=== PATIENT | female | born 1995 | race Caucasian/White ===

== ENCOUNTER 2019-11-02 15:06 | Emergency (ER) | payer MEDICAID, SELFPAY ==
[2019-11-02 15:32] VITALS: BP 100/60; PULSE 83; RESP 16; TEMP 37.1; O2SAT 99
--- NOTE | 2019-11-02 16:07 | ED.URI ---
HPI - URI/Sore Throat General Chief Complaint: Upper Respiratory Infection Stated Complaint: Cold/Flu Time Seen by Provider: 11/02/19 15:42 Source: patient and RN notes reviewed Mode of arrival: ambulatory Limitations: no limitations History of Present Illness HPI Narrative: Patient presents today with a 10-day history of body aches and cough. States she is feeling better. Denies any current fever, shortness of breath, nausea or vomiting. She presents with her 2 children with similar symptoms today. She has not been taking any medication for symptoms prior to arrival MD elicited complaint: cough Related Data Allergies Allergy/AdvReac Type Severity Reaction Status Date / Time shellfish derived Allergy Unknown Anaphylactic Verified 09/20/19 08:30 Shock Review of Systems Review of Systems: Narrative: CONSTITUTIONAL: Denies fever, chills, or sweats.+ Body aches EYES: Denies visual changes, redness, or discharge. ENT: Denies rhinorrhea, congestion, sore throat, or otalgia. CARDIOVASCULAR: Denies chest pain, palpitations, or edema. RESPIRATORY: Denies dyspnea.+ Cough GASTROINTESTINAL: Denies abdominal pain, nausea, vomiting, or diarrhea. GENITOURINARY: Denies dysuria or hematuria. SKIN: Denies rash, itching, or wounds. MUSCULOSKELETAL: Denies back pain, joint pain, or myalgia. NEUROLOGIC: Denies headache, numbness, tingling, or weakness. PSYCH: Denies depression or anxiety. PMFSH Social History Social History Gender identity (if verbalized by the patient): Female Comments At time of signature, I have reviewed and agree with nursing past medical, surgical, social and family history unless otherwise noted. Please see nursing chart for further information. There is no relevant family history pertinent to the presenting complaint Exam Narrative: Exam Narrative: GENERAL: Well-appearing, well-nourished, and in no acute distress. HEAD: Normocephalic, atraumatic. EYES: EOMI. No redness or drainage. Conjunctivae normal. ENT: Mucous membranes pink and moist. Nares mildly congested. No rhinorrhea. TMs normal bilaterally. Throat normal. Uvula midline. NECK: Normal AROM. Supple. No lymphadenopathy. CHEST: No respiratory distress. Clear to auscultation. HEART: Regular rate and rhythm. No murmur appreciated. Normal peripheral pulses. EXTREMITIES: Normal range of motion. No edema. SKIN: Warm, dry, no rash. NEURO: No focal deficits. Alert and oriented x3. Gait steady. PSYCH: Normal affect. No signs of depression or anxiety. Course Vital Signs Vital signs: Vital Signs Temperature 98.7 F 11/02/19 15:32 Pulse Rate 83 11/02/19 15:32 Respiratory Rate 16 11/02/19 15:32 Blood Pressure 100/60 11/02/19 15:32 Pulse Oximetry 99 11/02/19 15:32 Temperature 98.7 F 11/02/19 15:32 Pulse Rate 83 11/02/19 15:32 Respiratory Rate 16 11/02/19 15:32 Blood Pressure 100/60 11/02/19 15:32 Pulse Oximetry 99 11/02/19 15:32 Reviewed MDM - URI/Sore Throat Differential Diagnosis Differential diagnosis: Likely upper respiratory infection, otitis media, viral infection and bronchitis Lab Data Attestation: I reviewed the patient's lab results. Lab results narrative: Rapid strep negative, influenza negative Critical Care Time Critical Care Time Critical Care Time: No Discharge Plan Discharge Clinical Impression: Upper respiratory infection Qualifiers: URI type: unspecified URI Qualified Code(s): J06.9 - Acute upper respiratory infection, unspecified Patient Disposition: Home, Self-Care Condition: Stable Instructions: Antibiotic Form, Upper Respiratory Infection (DC) Additional Instructions: Your symptoms are likely due to a viral illness, which is not treated with antibiotics. Virus symptoms can last for up to 10-14 days. Take Tylenol or ibuprofen for pain or fever. Rest and stay hydrated. Follow up with your PCP in 5-6 days if symptoms are not improving, or sooner if symptoms are wo
== END 2019-11-02 16:29 | disposition home or self-care (01) ==
PROVIDERS: Emergency Provider Nurse Practitioner; PCP Physician Assistant
DX: J06.9 Acute upper respiratory infection, unspecified (principal)
CPT/HCPCS: 87081; 87804; 87880; 99213; G0463

== ENCOUNTER 2020-02-23 15:54 | Emergency (ER) | payer OTHER, SELFPAY ==
--- NOTE | ~2020-02-23 | XR_ITS ---
EXAMINATION: XR foot LT min 3V DATE: 02/23/2020 16:16 INDICATION: Pain at the distal metatarsal of the left foot post injury 4 days prior TECHNIQUE: Dorsoplantar, two oblique and lateral views of the left foot were obtained. COMPARISON: None. FINDINGS: Alignment is normal. No fracture. Joint spaces are normal. Soft tissues are unremarkable. IMPRESSION: 1. Negative left foot radiographs. Reviewed, dictated and finalized at location A.
[2020-02-23 16:06] VITALS: BP 119/65; PULSE 69; RESP 16; TEMP 37.4; O2SAT 99
--- NOTE | 2020-02-23 16:06 | ED.LOWEXIN ---
HPI - Extremity Injury (Lower) General Chief Complaint: Extremity Injury, Lower Stated Complaint: left foot fracture Time Seen by Provider: 02/23/20 16:20 Source: patient and RN notes reviewed Mode of arrival: ambulatory Limitations: no limitations History of Present Illness HPI Narrative: 24-year-old female presents with concern for left foot injury. Reports she jumped into the shallow end of a pool Friday causing pain in the dorsal aspect of her left foot. Reports pain at rest and with weightbearing. Reports bruising. Reports she has been using an Gene wrap with some relief. MD complaint: foot injury Related Data Home Medications Medication Instructions Recorded Confirmed aripiprazole mg 02/23/20 clonazepam 02/23/20 estradiol mg 02/23/20 fluoxetine mg 02/23/20 medroxyprogesterone mg IM 02/23/20 trazodone 02/23/20 Allergies Allergy/AdvReac Type Severity Reaction Status Date / Time shellfish derived Allergy Unknown Anaphylactic Verified 11/02/19 16:12 Shock Review of Systems Review of Systems: Narrative: CONSTITUTIONAL: Denies malaise, chills, sweats, or fever. SKIN: Reports left foot bruising MUSCULOSKELETAL: Reports left foot pain. Denies numbness, tingling, decreased sensation, weakness PSYCHIATRIC: Denies anxiety or depression. All systems reviewed & are unremarkable except as noted in HPI and below PMFSH Social History Social History Gender identity (if verbalized by the patient): Female Comments At time of signature, agree with nursing past medical, surgical, social and family history. There is no relevant family history pertinent to the presenting complaint Exam Narrative: Exam Narrative: GENERAL: Well-appearing, well-nourished, and in no acute distress. HEAD: Normocephalic, atraumatic. EYES: PERRLA, conjunctivae clear NECK: Supple. CHEST: Speaks in full sentences. No respiratory distress. HEART: Regular rate and rhythm. Normal and equal peripheral pulses. EXTREMITIES: Left foot, digits have normal strength and sensation, no edema, normal range of motion. 5/5 strength with digit and ankle flexion and extension. Normal sensation with sensitivity to light touch and pain. No open wounds, no skin tenting, no devitalized tissue or atrophy, no trophic changes, no ecchymosis, no obvious deformity, alignment normal, no point tenderness, nearby joints and structures intact. Distal pulses palpable and equal bilaterally, skin warm, dry, pink. Capillary refill less than 3 seconds. SKIN: Warm, dry, no rash. NEURO: Alert and oriented x3. PSYCH: Normal mood and affect Course Course Emergency Course: Patient is aware of diagnosis, understands and agrees to treatment plan. Anticipatory guidance given. Patient agrees to follow-up as directed and is aware of reasons to seek care at the emergency department. Portions of this record may have been created with voice recognition software Vital Signs Vital signs: Vital Signs Temperature 99.4 F 02/23/20 16:06 Pulse Rate 69 02/23/20 16:06 Respiratory Rate 16 02/23/20 16:06 Blood Pressure 119/65 02/23/20 16:06 Pulse Oximetry 99 02/23/20 16:06 Temperature 99.4 F 02/23/20 16:06 Pulse Rate 69 02/23/20 16:06 Respiratory Rate 16 02/23/20 16:06 Blood Pressure 119/65 02/23/20 16:06 Pulse Oximetry 99 02/23/20 16:06 Reviewed. MDM - Extremity Injury (Lower) MDM Narrative Medical decision making narrative: Patients injury and pain is consistent with musculoskeletal etiology. No signs of neurological or vascular compromise on exam. Compartments and tissues are soft without signs of compartment syndrome. Pain is felt appropriate for further evaluation on an outpatient basis. Imaging Data My impression: Images reviewed, interpreted by radiologist, agree, see report. Radiologist's impression: EXAMINATION: XR foot LT min 3V DATE: 02/23/2020 16:16 INDICATION: Pain at the distal metatarsal of the left foot post injury 4 days
== END 2020-02-23 16:38 | disposition home or self-care (01) ==
PROVIDERS: Emergency Provider Nurse Practitioner; PCP Physician Assistant
DX: S99.922A Unspecified injury of left foot, initial encounter (principal); W16.522A Jumping or diving into swimming pool striking bottom causing other injury, initial encounter
CPT/HCPCS: 73630; 99213; G0463

== ENCOUNTER 2021-03-25 12:56 | Emergency (ER) | payer OTHER, SELFPAY ==
--- NOTE | ~2021-03-25 | XR_ITS ---
EXAMINATION: XR hand RT min 3V INDICATION: Right hand pain TECHNIQUE: Three views of the right hand are obtained. COMPARISON: 09/06/2018 FINDINGS: There is no fracture, dislocation, or subluxation. An old healed fracture of the third meta carpal is noted. The bones, soft tissues, and joint spaces are otherwise normal. IMPRESSION: 1. No acute osseous abnormality. Reviewed, dictated and finalized at location A.
[2021-03-25 13:05] VITALS: BP 96/71; PULSE 92; RESP 16; TEMP 37; O2SAT 99
--- NOTE | 2021-03-25 13:10 | PC.NURSE ---
1309- Pt taken from triage to x-ray
--- NOTE | 2021-03-25 13:26 | ED.GENADULT ---
HPI - General Adult General Chief complaint: Extremity Injury, Upper Stated complaint: right hand pain Time Seen by Provider: 03/25/21 13:26 Source: patient and RN notes reviewed Mode of arrival: ambulatory Limitations: no limitations History of Present Illness HPI narrative: 25-year-old female presents with right hand pain for the past 2 days. Bertha reports tripping and falling on Friday03/23/2021 on which she grabbed a railing to break her fall, hit RT upper arm and hand on concrete albertina causing injury. Naproxen with little relief. Radiation of pain throughout RT upper extremity with certain movements. No loss of mobility. Exacerbating factors consist of movement. The relieving factor is immobility. Dominant hand is the RIGHT HAND. No suspected abuse. Denies hitting head, loss of consciousness, syncopal episodes, dizziness, or seizure activity. LMP hysterectomy. Remains active. The patient reports she has not been diagnosed with COVID-19. The patient reports she received 2 Pfizer COVID-19 vaccines. The patient reports she is not waiting for the results of a COVID-19 lab test. The patient reports she does not have weakness, fatigue, or myalgia. The patient reports she does not have a new or worsening cough or shortness of breath. The patient reports she does not have any rhinorrhea, congestion, loss of taste, sore throat, and diarrhea. Denies recent traveling. Denies concerns for COVID-19 or exposures. At this time, the patient is not suspected of having COVID-19. Some parts of this dictation were generated by voice recognition software and may contain typographical and/or grammatical inaccuracies. Related Data Home Medications Medication Instructions Recorded Confirmed aripiprazole 1 mg PO DAILY 03/25/21 03/25/21 clonazepam 1 mg PO BID 03/25/21 03/25/21 fluoxetine 1 mg PO DAILY 03/25/21 03/25/21 mirtazapine 1 mg PO HS 03/25/21 03/25/21 prazosin 1 mg PO HS 03/25/21 03/25/21 rizatriptan 1 mg PO DAILY 03/25/21 03/25/21 Allergies Allergy/AdvReac Type Severity Reaction Status Date / Time shellfish derived Allergy Unknown Anaphylactic Verified 03/25/21 13:22 Shock Review of Systems Review of Systems: Narrative: CONSTITUTIONAL: Denies fever, chills, sweats. EYES: Denies visual changes, redness, discharge. ENT: Denies rhinorrhea, congestion, sore throat, otalgia. CARDIOVASCULAR: Denies chest pain, palpitations, edema. RESPIRATORY: Denies dyspnea, wheezing, cough. GASTROINTESTINAL: Denies abdominal pain, nausea, vomiting, diarrhea. SKIN: Denies rash or itching. MUSCULOSKELETAL: Denies acute back pain or myalgia. Complaints of Right hand pain. NEUROLOGIC: Denies numbness or focal weakness. PSYCHIATRIC: Denies anxiety or depression. All other systems reviewed & are unremarkable except as noted in HPI and below. FORMERLY [facility] Past Medical History Medical History (Updated 04/02/21 @ 10:25 by ERNESTO Camacho) Anxiety Asthma Bipolar disorder delivery delivered Endometriosis Hx of migraines MRSA (methicillin resistant staph aureus) culture positive Post traumatic stress disorder (PTSD) Surgical History Surgical History (Updated 04/02/21 @ 10:19 by ERNESTO Camacho) H/O section X3 History of hysterectomy Family History Family History (Updated 03/25/21 @ 13:42 by ERNESTO Camacho) Father Alive and well Mother Alive and well Social History Social History (Updated 03/25/21 @ 13:43 by ERNESTO Camacho) Smoking packs per day: 0.25 Smoking cigarettes per day: 5.0 Years smoked: 1 Smoking pack-years: 0.25 Smoking status: Current every day smoker Tobacco type: cigarettes Second hand tobacco smoke exposure: No Alcohol intake: current Substance use: current Substance use type: marijuana Living arrangements: with family Occupation/Education: occupation Gender identity (if verbalized by the patient): Female Sexual Orienta
[2021-03-25 14:00] VITALS: BP 110/79
== END 2021-03-25 13:58 | disposition home or self-care (01) ==
PROVIDERS: Emergency Provider Nurse Practitioner Family
DX: S63.91XA Sprain of unspecified part of right wrist and hand, initial encounter (principal); X58.XXXA Exposure to other specified factors, initial encounter; F41.9 Anxiety disorder, unspecified; J45.909 Unspecified asthma, uncomplicated; N80.9 Endometriosis, unspecified; Z86.14 Personal history of Methicillin resistant Staphylococcus aureus infection; F17.210 Nicotine dependence, cigarettes, uncomplicated
CPT/HCPCS: 73130; 99213; G0463

== ENCOUNTER 2021-06-27 10:20 | Emergency (ER) | payer OTHER, SELFPAY ==
[2021-06-27 10:32] VITALS: BP 114/80; PULSE 79; RESP 16; TEMP 36.8; O2SAT 100
== END 2021-06-27 10:50 | disposition left against medical advice (07) ==
LOC: EXPCOLL 10:23
PROVIDERS: Emergency Provider Nurse Practitioner Family
DX: Z53.21 Procedure and treatment not carried out due to patient leaving prior to being seen by health care provider (principal)
CPT/HCPCS: 99199

== ENCOUNTER 2023-01-14 10:33 | Emergency (ER) | payer OTHER, SELFPAY ==
[2023-01-14 10:44] VITALS: BP 103/70; PULSE 78; RESP 16; TEMP 36.6; O2SAT 100
--- NOTE | 2023-01-14 10:47 | ED.GENADULT ---
HPI - General Adult General Chief complaint: RADIOLOGY ORDERLY Stated complaint: vaginal exam Source: patient Mode of arrival: ambulatory Limitations: no limitations History of Present Illness HPI narrative: Patient presents for evaluation of vaginal discharge for last 2-3 days. She indicates discharge is white in appearance and has a foul odor. She is concerned she has BV or STI. She is not sure whether any sex partners are symptomatic. History of total hysterectomy. No fever, chills, nausea, vomiting, abdominal pain, low back pain or urinary symptoms. Related Data Home Medications Medication Instructions Recorded Confirmed aripiprazole 10 mg tablet 1 mg PO DAILY 03/25/21 03/25/21 clonazepam 2 mg tablet 1 mg PO BID 03/25/21 03/25/21 fluoxetine 40 mg capsule 1 mg PO DAILY 03/25/21 03/25/21 mirtazapine 15 mg tablet 1 mg PO HS 03/25/21 03/25/21 prazosin 1 mg capsule 1 mg PO HS 03/25/21 03/25/21 rizatriptan 10 mg disintegrating 1 mg PO DAILY 03/25/21 03/25/21 tablet gabapentin 300 mg capsule mg 01/14/23 Allergies Allergy/AdvReac Type Severity Reaction Status Date / Time shellfish derived Allergy Unknown Anaphylactic Verified 03/25/21 13:22 Shock Review of Systems Review of Systems: CONSTITUTIONAL: Denies fever, chills, or sweats. EYES: Denies visual changes, redness, or discharge. ENT: Denies rhinorrhea, congestion, sore throat, or otalgia. CARDIOVASCULAR: Denies chest pain, palpitations, or edema. RESPIRATORY: Denies cough or dyspnea. GASTROINTESTINAL: Denies abdominal pain, nausea, vomiting, or diarrhea. GENITOURINARY: Reports foul smelling vaginal discharge. Denies vaginal bleeding. Denies dysuria or hematuria. SKIN: Denies rash or itching. MUSCULOSKELETAL: Denies back pain, joint pain, or myalgia. NEUROLOGIC: Denies headache, numbness, dizziness, or weakness. PSYCHIATRIC: Denies anxiety or depression. [facility] Past Medical History Medical History Anxiety Asthma Bipolar disorder delivery delivered Endometriosis Hx of migraines MRSA (methicillin resistant staph aureus) culture positive Post traumatic stress disorder (PTSD) Surgical History Surgical History H/O section X3 History of hysterectomy Family History Family History Father Alive and well Mother Alive and well Social History Social History (Updated 03/25/21 @ 13:43 by David Victoria [facility]) Smoking packs per day: 0.25 Smoking cigarettes per day: 5.0 Years smoked: 1 Smoking pack-years: 0.25 Smoking status: Current every day smoker Tobacco type: cigarettes Second hand tobacco smoke exposure: No Alcohol intake: current Substance use: current Substance use type: marijuana Living arrangements: with family Occupation/Education: occupation Gender identity (if verbalized by the patient): Female Sexual Orientation (if Verbalized by the Patient): Straight or Heterosexual Exam Narrative: GENERAL: Well-appearing, well-nourished, and in no acute distress. HEAD: Normocephalic, atraumatic. EYES: PERRLA and EOMI. ENT: Nares clear, no rhinorrhea or epistaxis. Mucous membranes moist. Oropharynx without tonsillar hypertrophy exudate or other lesions. Bilateral TMs pearly denise nonbulging NECK: Supple. No adenopathy or masses. No carotid bruits or JVD CHEST: Clear to auscultation. No respiratory distress. No wheezes rales or rhonchi HEART: Regular rate and rhythm. No murmur heard. Normal peripheral pulses. ABDOMEN: Soft, nontender, nondistended, normal active bowel sounds. EXTREMITIES: Normal range of motion. No edema. GENITAL: No external genital lesions. Cervix is surgically absent. There is a moderate amount of white discharge in vaginal vault. SKIN: Warm, dry, no rash. NEURO: No focal deficits. Alert and oriente
[2023-01-14] MEDS: cefTRIAXone 500 MG VIAL IM (11:19)
--- NOTE | 2023-01-14 11:46 | PC.NURSE ---
Vaginal exam done and cultures obtained.
== END 2023-01-14 11:46 | disposition home or self-care (01) ==
PROVIDERS: Emergency Provider Nurse Practitioner
DX: N76.0 Acute vaginitis (principal); F17.210 Nicotine dependence, cigarettes, uncomplicated; F12.90 Cannabis use, unspecified, uncomplicated; J45.909 Unspecified asthma, uncomplicated; N80.9 Endometriosis, unspecified; Z86.14 Personal history of Methicillin resistant Staphylococcus aureus infection; F41.9 Anxiety disorder, unspecified; F31.9 Bipolar disorder, unspecified
CPT/HCPCS: 81003; 87070; 87491; 87591; 87661; 96372; 99214; G0463; J0696

== ENCOUNTER 2023-04-17 16:21 | Emergency (ER) | payer OTHER, SELFPAY ==
--- NOTE | 2023-04-17 16:27 | ED.FEMALEGU ---
HPI - Female Genitourinary General Chief complaint: Urogenital-Female Stated complaint: Vaginal Issue Time Seen by Provider: 04/17/23 16:29 Source: patient, RN notes reviewed and old records reviewed Mode of arrival: ambulatory Limitations: no limitations History of Present Illness HPI Narrative: 27-year-old female presents to the [facility] with concerns for vaginal issues. Has a history of bacterial vaginitis, states it smells and feels like her typical. Patient denies , has a hysterectomy. Denies chances of an STD. Denies any abdominal pain, chest pain. Denies fevers. No urinary symptoms. Patient reports I just can not stand the smell. ? Onset (ago): day(s) (2) Related Data Home Medications Medication Instructions Recorded Confirmed aripiprazole 10 mg tablet 1 mg PO DAILY 03/25/21 04/17/23 clonazepam 2 mg tablet 1 mg PO BID 03/25/21 04/17/23 fluoxetine 40 mg capsule 1 mg PO DAILY 03/25/21 04/17/23 albuterol sulfate 90 mcg/actuation inhalation 04/17/23 aerosol inhaler clonidine HCl 0.1 mg tablet mg 04/17/23 gabapentin 300 mg capsule 300 mg PO BID 04/17/23 04/17/23 Allergies Allergy/AdvReac Type Severity Reaction Status Date / Time shellfish derived Allergy Unknown Anaphylactic Verified 04/17/23 16:35 Shock Review of Systems Review of Systems: All systems reviewed & are unremarkable except as noted in HPI and below Constitutional: Constitutional: Reports no additional constitutional complaints Eyes: Eyes: Reports no additional eye complaints ENT: Reports system reviewed and no additional complaints, except as documented Cardiovascular: Cardiovascular: Reports no additional cardiovascular complaints, Denies chest pain and Denies dyspnea Respiratory: Respiratory: Reports no additional respiratory complaints, Denies chest congestion, Denies cough and Denies dyspnea Gastrointestinal: Gastrointestinal: Reports no additional gastrointestinal complaints, Denies abdominal pain, Denies nausea and Denies vomiting Genitourinary: Genitourinary: Reports as per HPI, Reports vaginal discharge and Reports vaginal odor Musculoskeletal: Musculoskeletal: Reports no additional musculoskeletal complaints Integumentary/Breasts: Skin/Breast: Reports system reviewed and no additional complaints, except as docu Neurologic: Reports system reviewed and no additional complaints, except as documented Psychiatric: Psychiatric: Reports no additional psychiatric complaints Allergic/Immunologic: Allergic/Immunologic: Reports no additional allergic/immunologic complaints PMFSH Past Medical History Medical History Anxiety Asthma Bipolar disorder delivery delivered Endometriosis Hx of migraines MRSA (methicillin resistant staph aureus) culture positive Post traumatic stress disorder (PTSD) Surgical History Surgical History H/O section X3 History of hysterectomy Family History Family History Father Alive and well Mother Alive and well Social History Social History Smoking packs per day: 0.25 Smoking cigarettes per day: 5.0 Years smoked: 1 Smoking pack-years: 0.25 Smoking status: Current every day smoker Tobacco type: cigarettes Second hand tobacco smoke exposure: No Alcohol intake: current Substance use: current Substance use type: marijuana Living arrangements: with family Occupation/Education: occupation Gender identity (if verbalized by the patient): Female Sexual Orientation (if Verbalized by the Patient): Straight or Heterosexual Comments At the time of my signature, I reviewed and agree with the nursing past medical, surgical, social, and family history. There is no relevant family history pertinent to the patient complaint. Ex
[2023-04-17 16:30] VITALS: BP 118/76; PULSE 100; RESP 18; TEMP 36.9; O2SAT 99
== END 2023-04-17 16:45 | disposition home or self-care (01) ==
PROVIDERS: Emergency Provider Nurse Practitioner; PCP Physician Assistant
DX: N76.0 Acute vaginitis (principal); F17.210 Nicotine dependence, cigarettes, uncomplicated; F12.90 Cannabis use, unspecified, uncomplicated; J45.909 Unspecified asthma, uncomplicated; N80.9 Endometriosis, unspecified; Z86.14 Personal history of Methicillin resistant Staphylococcus aureus infection; F41.9 Anxiety disorder, unspecified; F43.10 Post-traumatic stress disorder, unspecified
CPT/HCPCS: 99213; G0463

== ENCOUNTER 2023-09-09 14:13 | Emergency (ER) | payer OTHER, SELFPAY ==
[2023-09-09 14:23] VITALS: BP 108/74; PULSE 90; RESP 18; TEMP 36.9; O2SAT 98
--- NOTE | 2023-09-09 15:34 | ED.URI ---
HPI - URI/Sore Throat General Chief Complaint: Upper Respiratory Infection Stated Complaint: Sore Throat/Fever/Headache Time Seen by Provider: 09/09/23 15:32 Source: patient, RN notes reviewed and old records reviewed Mode of arrival: ambulatory Limitations: no limitations History of Present Illness HPI Narrative: 27-year-old female who who presents to [facility] with complaints of cough, headache, sinus pressure, runny nose, sore throat, body aches and fevers the past 3 days. Patient states she has been taking Mucinex and has been taking Advil flu [id number] medication for her symptoms. MD elicited complaint: cough and sore throat Onset (ago): day(s) (3) Consistency: constant Pain scale (0-10): 5 Able to tolerate fluids by mouth: Yes Treatments prior to arrival: other (Mucinex and Advil flu OTC) Related Data Home Medications Medication Instructions Recorded Confirmed clonidine HCl 0.1 mg tablet 0.1 mg PO DAILY 04/17/23 09/09/23 aripiprazole 15 mg tablet 15 mg PO DAILY 09/09/23 09/09/23 clonazepam 1 mg tablet 1 mg PO BID 09/09/23 09/09/23 fluoxetine 20 mg capsule 20 mg PO DAILY 09/09/23 09/09/23 trazodone 50 mg tablet 50 mg PO QHS 09/09/23 09/09/23 Allergies Allergy/AdvReac Type Severity Reaction Status Date / Time shellfish derived Allergy Unknown Anaphylactic Verified 09/09/23 14:41 Shock Review of Systems Review of Systems: CONSTITUTIONAL: Reports malaise, chills, sweats, or fever. EYES: Denies visual changes, redness, or discharge. ENT: Reports rhinorrhea, congestion, sinus pain, no otalgia and positive sore throat. CARDIOVASCULAR: Denies chest pain, palpitations, or edema. RESPIRATORY: Reports cough.? Denies dyspnea. GASTROINTESTINAL: Denies abdominal pain, nausea, vomiting, diarrhea SKIN: Denies rash or itching. MUSCULOSKELETAL: Reports myalgia. NEUROLOGIC: Reports headache. All systems reviewed & are unremarkable except as noted in HPI and below PMFSH Past Medical History Medical History Anxiety Asthma Bipolar disorder delivery delivered Endometriosis Hx of migraines MRSA (methicillin resistant staph aureus) culture positive Post traumatic stress disorder (PTSD) Surgical History Surgical History H/O section X3 History of hysterectomy Family History Family History Father Alive and well Mother Alive and well Social History Social History Smoking packs per day: 0.25 Smoking cigarettes per day: 5.0 Years smoked: 1 Smoking pack-years: 0.25 Smoking status: Current every day smoker Tobacco type: cigarettes Second hand tobacco smoke exposure: No Alcohol intake: current Substance use: current Substance use type: marijuana Living arrangements: with family Occupation/Education: occupation Gender identity (if verbalized by the patient): Female Sexual Orientation (if Verbalized by the Patient): Straight or Heterosexual Comments At time of signature, agree with nursing past medical, surgical, social and family history. There is no relevant family history pertinent to the presenting complaint Exam Narrative: GENERAL: Well-appearing, well-nourished, and in no acute distress. HEAD: Normocephalic EYES: PERRLA, conjunctivae clear ENT: Nares clear, turbinates edematous and erythematous, clear discharge, sinus pressure.. Mucous membranes moist. TM pearly denise with dull light reflex bilaterally; no tragal tenderness. Oropharynx erythematous without lesions. Tonsils not enlarged and without exudate, no drooling, no hoarseness, no trismus, uvula midline.post nasal drainage NECK: Supple. No lymphadenopathy CHEST: Clear to auscultation, breath sounds equal. No wheezing, rhonchi, rales, or stridor. No resp
== END 2023-09-09 15:50 | disposition home or self-care (01) ==
PROVIDERS: Emergency Provider Registered Nurse; PCP Physician Assistant
DX: J06.9 Acute upper respiratory infection, unspecified (principal); F41.9 Anxiety disorder, unspecified; F17.210 Nicotine dependence, cigarettes, uncomplicated; Z79.899 Other long term (current) drug therapy; Z20.822 Contact with and (suspected) exposure to COVID-19
CPT/HCPCS: 87081; 87426; 87804; 87880; 99213; C9803; G0463

== ENCOUNTER 2024-01-19 15:19 | Emergency (ER) | payer OTHER, SELFPAY ==
[2024-01-19 15:24] VITALS: BP 106/69; PULSE 78; RESP 20; TEMP 36.8; O2SAT 100
--- NOTE | 2024-01-19 15:52 | ED.FEMALEGU ---
HPI - Female Genitourinary General Chief complaint: Urogenital-Female Stated complaint: Poss UTI Time Seen by Provider: 01/19/24 15:38 Source: patient, RN notes reviewed and old records reviewed Mode of arrival: ambulatory Limitations: no limitations History of Present Illness HPI Narrative: 28 year old female [facility] complaints of low back pain for several days and some abdominal pain, She reports urinary urgency, no burning or pain with urination or any visible blood in urine. Patient reports that she has not had a bowel movement for a week has taken Dulcolax and MOM without results. Patient reports that she wants to be tested for STI concern for exposure denies any discharge. MD elicited complaint: other (possible exposure to STD, urinary urgency) Pertinent past history: hysterectomy and other (IBS) Onset (ago): day(s) (few days and one week no BM) Severity: mild Treatment prior to arrival: other (MOM and Dulcolax) Related Data Home Medications Medication Instructions Recorded Confirmed clonidine HCl 0.1 mg tablet 0.1 mg PO DAILY 04/17/23 09/09/23 aripiprazole 15 mg tablet 15 mg PO DAILY 09/09/23 09/09/23 clonazepam 1 mg tablet 1 mg PO BID 09/09/23 09/09/23 fluoxetine 20 mg capsule 20 mg PO DAILY 09/09/23 09/09/23 trazodone 50 mg tablet 50 mg PO QHS 09/09/23 09/09/23 Allergies Allergy/AdvReac Type Severity Reaction Status Date / Time shellfish derived Allergy Unknown Anaphylactic Verified 09/09/23 14:41 Shock Review of Systems Review of Systems: CONSTITUTIONAL: Denies fever, chills, or sweats. CARDIOVASCULAR: Denies chest pain, palpitations, or edema. RESPIRATORY: Denies cough or dyspnea. GASTROINTESTINAL:States mid mild abdominal pain,no nausea, vomiting, or diarrhea, reports constipation GENITOURINARY: Reports urinary urgency. Denies flank pain or hematuria. SKIN: Denies rash or itching. MUSCULOSKELETAL: reports low back pain or myalgia. Denies CVA tenderness NEUROLOGIC: Denies headache All systems reviewed & are unremarkable except as noted in HPI and below PMFSH Past Medical History Medical History Anxiety Asthma Bipolar disorder delivery delivered Conversion disorder Endometriosis GERD (gastroesophageal reflux disease) Hx of migraines IBS (irritable bowel syndrome) MRSA (methicillin resistant staph aureus) culture positive Post traumatic stress disorder (PTSD) Surgical History Surgical History H/O section X3 History of hysterectomy Family History Family History Father Alive and well Mother Alive and well Social History Social History Smoking packs per day: 0.25 Smoking cigarettes per day: 5.0 Years smoked: 1 Smoking pack-years: 0.25 Smoking status: Current every day smoker Tobacco type: cigarettes Second hand tobacco smoke exposure: No Alcohol intake: current Substance use: current Substance use type: marijuana Living arrangements: with family Occupation/Education: occupation Gender identity (if verbalized by the patient): Female Sexual Orientation (if Verbalized by the Patient): Straight or Heterosexual Comments At time of signature, agree with nursing past medical, surgical, social and family history. There is no relevant family history pertinent to the presenting complaint Exam Narrative: GENERAL: Well-appearing, well-nourished, and in no acute distress. HEAD: Normocephalic, atraumatic. NECK: Supple.no lymphadenopathy CHEST: Clear to auscultation. No respiratory distress.SAO2 100% on room air HEART: Regular rate and rhythm. No murmur heard. Normal peripheral pulses. ABDOMEN: Soft, nontender to palpation no McBurney tenderness, no suprapubic pain or any left lower quadrant discomfort
[2024-01-19] MEDS: cefTRIAXone 500 MG, LIDOCAINE HCL 1% LOCAL INJ 1 ML IM (16:08)
[2024-01-19 20:38] LABS: Trichomonas Vag PCR NOT DETECTED (NOT DETECTE)
[2024-01-19 21:03] LABS: Chlamydia trachomatis NOT DETECTED (NOT DETECTE); Neisseria gonorrhoeae PCR NOT DETECTED (NOT DETECTE)
== END 2024-01-19 16:38 | disposition home or self-care (01) ==
PROVIDERS: Emergency Provider Registered Nurse
DX: R39.15 Urgency of urination (principal); K59.00 Constipation, unspecified; Z11.3 Encounter for screening for infections with a predominantly sexual mode of transmission; F17.210 Nicotine dependence, cigarettes, uncomplicated; J45.909 Unspecified asthma, uncomplicated; N80.9 Endometriosis, unspecified; K21.9 Gastro-esophageal reflux disease without esophagitis; F41.9 Anxiety disorder, unspecified; Z86.14 Personal history of Methicillin resistant Staphylococcus aureus infection
CPT/HCPCS: 81003; 87491; 87591; 87661; 96372; 99214; G0463; J0696

== ENCOUNTER 2024-02-09 08:54 | Emergency (ER) | payer OTHER, SELFPAY ==
[2024-02-09 09:02] VITALS: BP 109/70; PULSE 69; RESP 16; TEMP 36.5; O2SAT 100
--- NOTE | 2024-02-09 09:25 | ED.FEMALEGU ---
HPI - Female Genitourinary General Chief complaint: Urogenital-Female Stated complaint: Yeast Infection Time Seen by Provider: 02/09/24 09:09 Source: patient and RN notes reviewed Mode of arrival: ambulatory Limitations: no limitations History of Present Illness HPI Narrative: Patient presents today reporting severe itching of her external and internal genitalia x2 days with thick white discharge. She denies any concerns for sexually transmitted infections. She tried 1 day of the Monistat without relief. Also states that she scrubbed herself with a toothbrush. Related Data Home Medications Medication Instructions Recorded Confirmed clonidine HCl 0.1 mg tablet 0.1 mg PO DAILY 04/17/23 02/09/24 aripiprazole 15 mg tablet 15 mg PO DAILY 09/09/23 02/09/24 clonazepam 1 mg tablet 1 mg PO BID 09/09/23 02/09/24 fluoxetine 20 mg capsule 20 mg PO DAILY 09/09/23 02/09/24 trazodone 50 mg tablet 50 mg PO QHS 09/09/23 02/09/24 Allergies Allergy/AdvReac Type Severity Reaction Status Date / Time shellfish derived Allergy Unknown Anaphylactic Verified 02/09/24 09:04 Shock Review of Systems Review of Systems: CONSTITUTIONAL: Denies body aches, fever, chills, or sweats. EYES: Denies visual changes, redness, or discharge. ENT: Denies rhinorrhea, congestion, sore throat, or otalgia. CARDIOVASCULAR: Denies chest pain, palpitations, or edema. RESPIRATORY: Denies cough or dyspnea. GASTROINTESTINAL: Denies abdominal pain, nausea, vomiting, or diarrhea. GENITOURINARY: Denies dysuria or hematuria. + vaginal discharge and itching SKIN: Denies rash, itching, or wounds. MUSCULOSKELETAL: Denies back pain, joint pain, or myalgia. NEUROLOGIC: Denies headache, numbness, tingling, or weakness. PSYCH: Denies depression or anxiety. [facility] Past Medical History Medical History Anxiety Asthma Bipolar disorder delivery delivered Conversion disorder Endometriosis GERD (gastroesophageal reflux disease) Hx of migraines IBS (irritable bowel syndrome) MRSA (methicillin resistant staph aureus) culture positive Post traumatic stress disorder (PTSD) Surgical History Surgical History H/O section X3 History of hysterectomy Family History Family History Father Alive and well Mother Alive and well Social History Social History Smoking packs per day: 0.25 Smoking cigarettes per day: 5.0 Years smoked: 1 Smoking pack-years: 0.25 Smoking status: Current every day smoker Tobacco type: cigarettes Second hand tobacco smoke exposure: No Alcohol intake: current Substance use: current Substance use type: marijuana Living arrangements: with family Occupation/Education: occupation Gender identity (if verbalized by the patient): Female Sexual Orientation (if Verbalized by the Patient): Straight or Heterosexual Comments Reviewed Exam Narrative: GENERAL: Well-appearing, well-nourished, and in no acute distress. HEAD: Normocephalic, atraumatic. EYES: EOMI. No redness or drainage. Conjunctivae normal. ENT: Mucous membranes pink and moist. NECK: Normal AROM. CHEST: No respiratory distress. : exam deferred by patient EXTREMITIES: Normal range of motion. No edema. SKIN: Warm, dry, no rash. Capillary refill normal. Normal skin turgor. NEURO: No focal deficits. Alert and oriented x3. Gait steady. PSYCH: Normal affect. No signs of depression or anxiety. Course Course Level of Care: Express Care Visit Vital Signs Vital signs: Vital Signs Temperature 97.7 F 02/09/24 09:02 Pulse Rate 69 02/09/24 09:02 Respiratory Rate 16 02/09/24 09:02 Blood Pressure 109/70 02/09/24 09:02 Pulse Oximetry 100 02/09/24 09:02 Oxygen Delivery Room
== END 2024-02-09 09:35 | disposition home or self-care (01) ==
PROVIDERS: Emergency Provider Nurse Practitioner; PCP Physician Assistant
DX: N76.0 Acute vaginitis (principal); F17.210 Nicotine dependence, cigarettes, uncomplicated; J45.909 Unspecified asthma, uncomplicated; N80.9 Endometriosis, unspecified; K21.9 Gastro-esophageal reflux disease without esophagitis; Z86.14 Personal history of Methicillin resistant Staphylococcus aureus infection; F41.9 Anxiety disorder, unspecified; F43.10 Post-traumatic stress disorder, unspecified
CPT/HCPCS: 99213; G0463

== ENCOUNTER 2024-02-11 14:44 | Observation (INO) | payer OTHER, SELFPAY ==
[2024-02-11] VITALS (9 sets, daily range): BP systolic 112–135; BP diastolic 69–86; PULSE 61–82; RESP 14–21; TEMP 36.4–36.6; O2SAT 96–100; BMI 25.8
--- NOTE | ~2024-02-11 | CT_ITS ---
EXAMINATION: CTA chest abdomen pelvis DATE: 02/11/2024 16:13 INDICATION: Left chest pain radiating to the back. TECHNIQUE: Computed tomographic angiography (CTA) of the chest, abdomen, and pelvis was performed wit h 100 mL Omnipaque-350 intravenous contrast. Automated exposure control and iterative reconstruction technique were employed. The dose-length product was 419.94 mGy-cm. Maximum intensity projection 3D-r econstructions of the aorta and other arteries were constructed by the technologist on a separate wor kstation. COMPARISON: CT abdomen and pelvis 08/23/2016 FINDINGS: CHEST CTA: The visualized portions of the lung bases demonstrate minimal atelectasis. No pleural effusion. The h eart size is normal. No pericardial effusion. There is no pulmonary embolus. ABDOMEN AND PELVIS CTA: The liver, gallbladder, spleen, pancreas, adrenal glands, and kidneys are normal. There is diverticul osis of the colon without evidence of diverticulitis. There are no dilated loops of bowel. The append ix is normal. There are no pathologically enlarged lymph nodes. There is no free intraperitoneal flui d. The aorta is normal. L4 and L5 are limbus vertebrae. IMPRESSION: 1. Normal aorta. Reviewed, dictated and finalized at location A. IMPRESSION: 1. Normal aorta.
--- NOTE | ~2024-02-11 | XR_ITS ---
EXAMINATION: XR chest 2V DATE: 02/11/2024 15:13 INDICATION: Chest pain. TECHNIQUE: Frontal and lateral views of the chest were obtained. COMPARISON: Chest 2 views 05/07/2019 FINDINGS: There is no pneumonia, pleural effusion, or pneumothorax. The heart size is normal. IMPRESSION: 1. No acute cardiopulmonary disease. Reviewed, dictated and finalized at location A.
--- NOTE | 2024-02-11 14:44 | ECG_ITS ---
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 Measurements Intervals [place] Rate: 85 P: 33 NV: 128 QRS: 39 QRSD: 82 T: 43 QT: 357 QTc: 426 Interpretive Statements SINUS RHYTHM No previous ECG available for comparison Electronically Signed On 02-12-2024 13:34:19 CDT by Tres Wagoner M.D.
--- NOTE | 2024-02-11 14:50 | ED.CHESTPAIN ---
HPI - Chest Pain General Chief Complaint: Chest Pain Stated Complaint: chest pain Time Seen by Provider: 02/11/24 14:47 History of Present Illness HPI narrative: 28-year-old female history of bipolar and GERD presents to the emergency room for evaluation of sharp chest pain has been present for 1 and half days. Patient states the pain is worse with movement, breathing and coughing. States this is attempted naproxen and ibuprofen without relief. Patient reports she recently has had a cough with other URI symptoms. Denies nausea or vomiting, dizziness or lightheadedness. States pain radiates into her back, neck and left arm. Related Data Home Medications Medication Instructions Recorded Confirmed clonidine HCl 0.1 mg tablet 0.1 mg PO DAILY 04/17/23 02/09/24 aripiprazole 15 mg tablet 15 mg PO DAILY 09/09/23 02/09/24 clonazepam 1 mg tablet 1 mg PO BID 09/09/23 02/09/24 fluoxetine 20 mg capsule 20 mg PO DAILY 09/09/23 02/09/24 trazodone 50 mg tablet 50 mg PO QHS 09/09/23 02/09/24 Allergies Allergy/AdvReac Type Severity Reaction Status Date / Time shellfish derived Allergy Unknown Anaphylactic Verified 02/09/24 09:04 Shock Review of Systems Review of Systems: ROS and were remarkable as otherwise stated in HPI PMFSH Past Medical History Medical History Anxiety Asthma Bipolar disorder delivery delivered Conversion disorder Endometriosis GERD (gastroesophageal reflux disease) Hx of migraines IBS (irritable bowel syndrome) MRSA (methicillin resistant staph aureus) culture positive Post traumatic stress disorder (PTSD) Surgical History Surgical History H/O section X3 History of hysterectomy Family History Family History Father Alive and well Mother Alive and well Social History Social History Smoking packs per day: 0.25 Smoking cigarettes per day: 5.0 Years smoked: 1 Smoking pack-years: 0.25 Smoking status: Current every day smoker Tobacco type: cigarettes Second hand tobacco smoke exposure: No Alcohol intake: current Substance use: current Substance use type: marijuana Living arrangements: with family Occupation/Education: occupation Gender identity (if verbalized by the patient): Female Sexual Orientation (if Verbalized by the Patient): Straight or Heterosexual Exam Narrative: GENERAL: Well-appearing, well-nourished, no physical limitations, and in no acute distress. HEAD: Normocephalic, atraumatic. EYES: Conjunctivae normal, PERRLA and EOMI. CHEST: Clear to auscultation. No respiratory distress. No wheezes rales or rhonchi. Sternal tenderness. + crowing rooster maneuver HEART: Regular rate and rhythm. No murmur heard. Normal peripheral pulses. ABDOMEN: Soft, nontender, nondistended, normal active bowel sounds. EXTREMITIES: Normal range of motion. No edema. No clubbing or cyanosis SKIN: Warm, dry, no rash. No noted wounds NEURO: No focal deficits. Alert and oriented x3. MAEW. CN's II-XI intact bilaterally, normal gait PSYCH: Cooperative. Normal mood and affect. Course Vital Signs Vital signs: Vital Signs Temperature 36.5 C 02/11/24 14:47 Pulse Rate 82 02/11/24 14:47 Respiratory Rate 21 H 02/11/24 14:47 Blood Pressure 126/86 02/11/24 14:47 Pulse Oximetry 100 02/11/24 14:47 Oxygen Delivery Room Air 02/11/24 14:47 Temperature 36.5 C 02/11/24 14:47 Pulse Rate 78 02/11/24 14:51 Respiratory Rate 21 H 02/11/24 14:47 Blood Pressure 126/86 02/11/24 14:47 Pulse Oximetry 100 02/11/24 14:51 Oxygen Delivery Room Air 02/11/24 14:51 MDM - Chest Pain MDM Narrative Medical decision making narrative: 28-year-old female presented emergency room for evaluation of chest pain dionicio
[2024-02-11] MEDS: KETOROLAC 30 MG/ML VIAL (*BKC) IV PUSH (14:54)
[2024-02-11 15:10] LABS: Basophils Percent Auto 0.4 % (0.2-1.2); Eosinophils Absolute Auto 0.3 K/mm3 (0-0.3); Eosinophils Percent Auto 3.6 % (0-4.4); Hematocrit 43.6 % (37.0-47.0); Hemoglobin 15.1 g/dL (12.0-15.0); Immature Granulocyte Absolute 0.01 K/mm3 (0.00-0.031); Immature Granulocyte Percent A 0.1 % (0-0.5); Lymphocytes Absolute Auto 1.98 K/mm3 (0.9-3.2); Lymphocytes Percent Auto 28.2 % (18.3-44.2); Mean Corpuscular HGB Conc 34.6 g/dl (32-36); Mean Corpuscular Volume 95.4 fl (80-100); Mean Platelet Volume 9.5 fl (7.4-10.4); Monocytes Absolute Auto 0.5 K/mm3 (0.1-0.6); Monocytes Percent Auto 7.5 % (2.6-8.5); Neutrophils Absolute Auto 4.2 K/mm3 (1.3-6.7); Neutrophils Percent Auto 60.2 % (45.5-73.1); Platelet Count Result 299 k/mm3 (150-375); Red Blood Count 4.57 M/mm3 (4.2-5.4); Red Cell Distribution Width 12.9 % (11.5-14.5)
[2024-02-11 15:22] LABS: INR 0.9; Prothrombin Time 13.1 Seconds (11.1-14.7)
[2024-02-11 15:23] LABS: Alanine Aminotransferase 18 U/L (6-35); Albumin Level 3.8 g/dL (3.5-5.1); Alkaline Phosphatase 61 U/L (38-126); Anion Gap 4 mmol/L (4-12); Aspartate Amino Transferase 18 U/L (14-36); Bilirubin,Total 0.6 mg/dL (0.2-1.3); Blood Urea Nitrogen 10 mg/dL (7-17); Calcium 8.8 mg/dL (8.4-10.2); Carbon Dioxide 25 mmol/L (22-30); Chloride 108 mmol/L (98-107); Estimated CRCL calculation 88 ml/min; Estimated Glomerular Filt Rate > 60; Glucose 92 mg/dL (65-110); Lipase 100 U/L (23-300); Partial Thromboplastin Time 26.9 Seconds (22.3-36.8); Sodium 137 mmol/L (137-145)
[2024-02-11 15:28] LABS: D Dimer < 0.27 ug/mL (<0.48)
[2024-02-11 15:43] LABS: Troponin I 0.069 ng/mL (0.000-0.034)
[2024-02-11] MEDS: NITROGLYCERIN SL 0.4 MG TABLET SUBLINGUAL (15:58)
[2024-02-11] MEDS: SODIUM CHLORIDE 0.9% IV 1,000 ML 999 ML IV CONT (16:01)
[2024-02-11] MEDS: ONDANSETRON INJ 4 MG/2 ML VIAL IV PUSH ×2 (16:19→21:30)
[2024-02-11] MEDS: MORPHINE SULFATE (*CRX) 4 MG/ML INJ IV PUSH (16:20)
--- NOTE | 2024-02-11 16:36 | PM.IMHP ---
H&P: HPI History of Present Illness Date/Time: 02/11/24 16:36 Chief Complaint: Chest pain Narrative: 28 y/o F presents here with chest pain with PMH of asthma, anxiety, bipolar disorder, conversion disorder, endometriosis, GERD, migraines, IBS, and PTSD. The patient presents here from home for further evaluation of chest pain. She reports sudden/insidious onset of left sided chest pain that started when she woke on Friday (01/08). Patient took Ibuprofen TID without relief. She describes the pain as sharp, radiating into her upper back/left arm/left neck and clavicle, intermittent, aggravated by coughing/movement/deep inspiration/laying flat, and partially alleviated by Ibuprofen/ice. Has associated nausea and shortness of breath which she relates to the inability to take a deep breath. Later developed blurred vision and dizziness last night that has since resolved. She currently denies diaphoresis, vomiting, syncope/near syncope, palpitations, or bilateral lower extremity edema. Denies fever, chills, or body aches. Previous hx of similar pain approximately 2 weeks ago, she fell to the ground with tunnel vision and severe midsternal chest pain which lasted for approximately 3 hours and resolved without intervention. No new medications. Has a personal hx of cardiac issues but is unsure of what the diagnosis was. Was being seen at [facility] but stopped going due to insurance reasons. Denies hx of IVDU, does use marijuana. Initial VS at presentation: 97.7? F, HR 82, RR 21, 126/86, and 100% on RA. ED workup showed: No leukocytosis, no anemia, D-dimer negative, no significant electrolyte derangements, creatinine 0.7 and normal GFR, AST/ALT/lipase WNL, and initial troponin elevated at 0.069. CXR showed no acute cardiopulmonary disease. CTA of the chest abdomen pelvis showed a normal aorta. Review of Systems Review of Systems: All systems reviewed & are unremarkable except as noted in HPI and below [facility] Past Medical History Medical History (Updated 02/11/24 @ 16:47 by Silvia Gruber APRN) Anxiety Asthma Bipolar disorder delivery delivered Conversion disorder Endometriosis GERD (gastroesophageal reflux disease) Hx of migraines IBS (irritable bowel syndrome) MRSA (methicillin resistant staph aureus) culture positive Post traumatic stress disorder (PTSD) Surgical History Surgical History H/O section X3 History of hysterectomy Family History Family History Father Alive and well Mother Alive and well Social History Social History Smoking packs per day: 0.5 Smoking cigarettes per day: 10.0 Years smoked: 4 Smoking pack-years: 2.00 Smoking status: Current every day smoker Tobacco type: cigarettes Second hand tobacco smoke exposure: No Alcohol intake: current Drinks per week: 3 Substance use: current Substance use type: marijuana Do You Feel Safe in your Home?: Yes Lack of Transportation: No Lack of Food: Sometimes True Current Housing: I Have Housing Concerned About Future Housing: YES Difficulty Paying Gas/Electric Bills: YES Difficulty Paying for Meds: YES Currently Unemployed: No Education: High School Diploma/GED Difficulty w/ Childcare or Family Care: No Living arrangements: with family Occupation/Education: occupation Gender identity (if verbalized by the patient): Female Sexual Orientation (if Verbalized by the Patient): Straight or Heterosexual Spiritual care concerns: No Meds Home Medications and Allergies Home Medications Medication Instructions Recorded Confirmed Type clonidine HCl 0.1 mg tablet 0.1 mg PO DAILY 04/17/23 02/11/24 History aripiprazole 15 mg tablet 15 mg PO DAILY 09/09/23 02/11/24 History clonazepam 1 mg tablet 1 mg PO BID 09/09/2302/10
[2024-02-11 16:40] LABS: Magnesium 2.1 mg/dL (1.6-2.3)
[2024-02-11] MEDS: HYDROmorphone HCL INJ (*CRX) 1 MG/ML SYR 0.5 MG IV PUSH ×2 (16:59→21:29)
--- NOTE | 2024-02-11 18:27 | PC.NURSE ---
[email or web address] Luis Gonzalez [facility] Admission Note: The patient,Bertha Leon,28 y/o, was given written information regarding hospital policies, unit procedures and contact persons. Patient's smoking status: Current every day smoker.
[2024-02-11 20:06] LABS: Troponin I 0.071 ng/mL (0.000-0.034)
[2024-02-11 20:54] LABS: Appearance Urine Turbid (Clear); Bacteria Urine None Seen /hpf; Bilirubin Urine Negative (Negative); Blood Urine Negative (Negative); Color Urine Yellow (Yellow); Glucose Urine UA Negative (Negative); Ketones Urine 1+ mg/dL (Negative); Leukocyte Esterase Ur 1+ LEU/UL (Negative); Nitrate Urine Negative (Negative); Non Pathogenic Casts 0-2; Protein Urine Trace mg/dL (Negative); Squamous Epithelial Cell Urine Occasional /hpf (Few); pH Urine 7.5 (5.0-9.0)
[2024-02-11 20:56] LABS: Add Urine Microscopic? YES; Specific Grav Ur 1.077 (1.001-1.035)
[2024-02-11 21:04] LABS: Amphetamine Screen Urine Negative (Negative); Barbiturate Screen Urine Negative (Negative); Benzodiazepines Screen Urine Negative (Negative); Cannabinoid Screen Urine Positive (Negative); Cocaine Screen Urine Positive (Negative); Methadone Screen Urine Negative (Negative); Opiate Screen Urine Positive (Negative); Phencyclidine Screen Urine Negative (Negative)
[2024-02-11 21:15] LABS: Troponin I 0.081 ng/mL (0.000-0.034)
[2024-02-12] VITALS (11 sets, daily range): BP systolic 102–112; BP diastolic 54–72; PULSE 53–74; RESP 18–20; TEMP 36.2–36.5; O2SAT 95–100; BMI 25.8
--- NOTE | 2024-02-12 | ECHO_ITS ---
Patient Info Name: Bertha Leon Age: 28 years : 1995 Gender: Female Ht: 64 in Wt: 150 lbs BSA: 1.77 m2 HR: 75 bpm BP: 112 / 70 mmHg Heart Rhythm: Sinus Rhythm Technical Quality: Good Exam Date: 02/12/2024 8:47 AM Exam Location: Echo Lab Patient Status: Inpatient Admit Date: 02/11/2024 Staff Ordering Physician: Silvia Gruber APRN Clinical Recruiter: Sean Guzman RDCS Attending Provider: Desiree Vargas MD Referring Physician: Yasmani GAUTHIER; Exam Type: CA echo doppler color flow Study Info Indications - Elevated Troponin Complete two-dimensional, color flow and Doppler transthoracic echocardiogram is performed. Summary 1. Left ventricular chamber dimension is normal. 2. Left ventricular systolic function is normal, estimated at 60-65%. 3. The left ventricular diastolic function is normal. 4. Right ventricular systolic function is normal. 5. There is mild mitral valve regurgitation. 6. There is mild tricuspid valve regurgitation. Left Ventricle Left ventricular chamber dimension is normal. Left ventricular systolic function is normal, estimated at 60-65%. There is no increased left ventricular wall thickness. The left ventricular diastolic function is normal. Right Ventricle Right ventricular chamber dimension is normal. Right ventricular systolic function is normal. Left Atria Left atrial chamber dimension is normal. Right Atria Right atrial chamber dimension is normal. Atrial Septum Intact interatrial septum visualized by color flow imaging. Aortic Valve The aortic valve is trileaflet. There is no aortic valve stenosis. There is trace aortic valve regurgitation. Pulmonic Valve The pulmonic valve is not well visualized. There is trace pulmonic regurgitation. Mitral Valve There is mild mitral valve regurgitation. Tricuspid Valve There is mild tricuspid valve regurgitation. Pericardium/Pleural There is no pericardial effusion. Inferior Vena Cava Normal inferior vena cava with >50% collapse upon inspiration consistent with normal right atrial pressure, 3 mmHg. Aorta The aortic root size at the sinus of Valsalva is normal. Left Ventricular Outflow Tract Name Value Normal LVOT 2D LVOT Diameter 2.0 cm LVOT Doppler LVOT Peak Gradient 3 mmHg LVOT Mean Gradient 1 mmHg LVOT VTI 18 cm LVOT VTI/AV VTI Ratio 0.8 LVOT Stroke Volume 54 ml LVOT CO 3.5 l/min LVOT CI 2.0 l/min/m2 Pulmonic Valve Name Value Normal RVOT Doppler RVOT Peak Gradient 2 mmHg PV Doppler PV Peak Gradient 2 mmHg PV Regurgitation Doppler
[2024-02-12] MEDS: ONDANSETRON INJ 4 MG/2 ML VIAL IV PUSH ×2 (01:23→08:34)
[2024-02-12] MEDS: HYDROmorphone HCL INJ (*CRX) 1 MG/ML SYR 0.5 MG IV PUSH ×2 (01:23→08:30)
[2024-02-12 04:24] LABS: Basophils Percent Auto 0.4 % (0.2-1.2); Eosinophils Absolute Auto 0.5 K/mm3 (0-0.3); Eosinophils Percent Auto 5.6 % (0-4.4); Hematocrit 40.8 % (37.0-47.0); Hemoglobin 13.1 g/dL (12.0-15.0); Immature Granulocyte Absolute 0.01 K/mm3 (0.00-0.031); Immature Granulocyte Percent A 0.1 % (0-0.5); Lymphocytes Percent Auto 36.4 % (18.3-44.2); Mean Corpuscular HGB Conc 32.1 g/dl (32-36); Mean Corpuscular Hemoglobin 32.1 pg (26-34); Mean Platelet Volume 9.7 fl (7.4-10.4); Monocytes Absolute Auto 0.7 K/mm3 (0.1-0.6); Monocytes Percent Auto 8.3 % (2.6-8.5); Neutrophils Absolute Auto 4.1 K/mm3 (1.3-6.7); Neutrophils Percent Auto 49.2 % (45.5-73.1); Platelet Count Result 261 k/mm3 (150-375); Red Blood Count 4.08 M/mm3 (4.2-5.4); Red Cell Distribution Width 12.9 % (11.5-14.5); White Blood Count 8.2 K/mm3 (4.5-10.0)
[2024-02-12 04:35] LABS: Alanine Aminotransferase 14 U/L (6-35); Albumin Level 3.1 g/dL (3.5-5.1); Alkaline Phosphatase 56 U/L (38-126); Anion Gap 1 mmol/L (4-12); Aspartate Amino Transferase 16 U/L (14-36); Bilirubin,Total 0.4 mg/dL (0.2-1.3); Blood Urea Nitrogen 11 mg/dL (7-17); Calcium 8.1 mg/dL (8.4-10.2); Carbon Dioxide 25 mmol/L (22-30); Chloride 108 mmol/L (98-107); Cholesterol 109 mg/dL (0-200); Estimated CRCL calculation 88 ml/min; Estimated Glomerular Filt Rate > 60; Glucose 91 mg/dL (65-110); HDL Direct 56 mg/dL; Potassium 3.9 mmol/L (3.4-5.0); Sodium 134 mmol/L (137-145); Triglycerides 96 mg/dL (<150)
[2024-02-12 04:46] LABS: LDL Cholesterol Direct 46 mg/dL
--- NOTE | 2024-02-12 12:02 | PM.CNCAR ---
Assessment and Plan Assessment and plan (1) Atypical chest pain: Code(s): R07.89 - Other chest pain Status: Acute Assessment and Plan: Chest pain is quite atypical -- it is pleuritic, has a reproducible component and changes with certain body positions. EKG is normal. CTA negative. No recent viral illness to suspect that this may be pericarditis. Troponins are minimally elevated but flat (could be elevated from cocaine). Will obtain echocardiogram. If echocardiogram normal, do not anticipate further workup. (2) Elevated troponin: Code(s): R79.89 - Other specified abnormal findings of blood chemistry Status: Acute Assessment and Plan: As above. (3) Marijuana dependence: Code(s): F12.20 - Cannabis dependence, uncomplicated Status: Acute Assessment and Plan: Daily marijuana smoker, encourage abstinence. Plan Recommendations and plan discussed with Hospitalist. History of Present Illness History of Present Illness Consult date/time: 02/12/24 12:02 Requesting physician: J Luis Frias APRN Consult reason: chest pain Reason For Visit: chest rocío,elevated troponin Narrative: We are consulted for chest pain and elevated troponin. This is a 28 year old female with asthma, anxiety, bipolar disorder, conversion disorder, GERD, migraines, IBS, PTSD who presented to [facility] for chest pain. Chest pain began on Friday and has been constant since then. Reports that it worsens with inspiration, and with certain body positions. Chest pain radiates to her left back. Took Ibuprofen at home without any relief. Patient reports that she was seeing [facility] in the past, last saw them 5-6 years ago but they stopped taking her insurance so she had not seen them since. States she was told that she had a valve problem and problem with aorta. Patient does smoke marijuana daily. Took an ecstasy pill on Friday. States she has never taken a pill like that before. Given SL NTG without relief. Morphine helps relieve the chest pain. Patient denies being -- states she had a hysterectomy in the past. Workup thus far shows: Troponins of 0.069, 0.071, and 0.081. TSH level is normal. UDS is positive for opiates, cocaine, and cannabinoids. CTA C/A/P is normal. EKG shows sinus rhythm with normal EKG. When asked about the UDS being positive for cocaine, patient reports that she took an ecstasy pill on Friday, but didn't know it had cocaine in it. Denies past cocaine use. Review of Systems Review of Systems: All systems reviewed & are unremarkable except as noted in HPI and below (HPI) [facility] Past Medical History Medical History Anxiety Asthma Bipolar disorder delivery delivered Conversion disorder Endometriosis GERD (gastroesophageal reflux disease) Hx of migraines IBS (irritable bowel syndrome) MRSA (methicillin resistant staph aureus) culture positive Post traumatic stress disorder (PTSD) Surgical History Surgical History H/O section X3 History of hysterectomy Family History Family History Father Alive and well Mother Alive and well Social History Social History Smoking packs per day: 0.5 Smoking cigarettes per day: 10.0 Years smoked: 4 Smoking pack-years: 2.00 Smoking status: Current every day smoker Tobacco type: cigarettes Second hand tobacco smoke exposure: No Alcohol intake: current Drinks per week: 3 Substance use: current Substance use type: marijuana Do You Feel Safe in your Home?: Yes Lack of Transportation: No Lack of Food: Sometimes True Current Housing: I Have Housing Concerned About Future Housing: YES Difficulty Paying Gas/Electric Bills: YES Difficulty Paying for Meds: YES Curr
[2024-02-12] MEDS: FLUoxetine HCL 20 MG CAPSULE PO (12:14)
[2024-02-12] MEDS: ARIPiprazole 5 MG TABLET 15 MG PO (12:14)
[2024-02-12 14:48] LABS: HIV 1/2 Ab P24 Ag Result Negative (Negative)
[2024-02-12] MEDS: metroNIDAZOLE 500 MG TABLET PO (14:50)
--- NOTE | 2024-02-12 15:44 | PM.DS ---
DS: Admitting Diagnosis Discharge Date 02/12/24 Admitting Diagnosis Chest pain DS: Discharge Diagnosis Discharge Diagnosis (1) Atypical chest pain: Code(s): R07.89 - Other chest pain Status: Acute (2) Elevated troponin: Code(s): R79.89 - Other specified abnormal findings of blood chemistry Status: Acute (3) Drug use: Code(s): F19.90 - Other psychoactive substance use, unspecified, uncomplicated Status: Acute DS: Summary Hospital Course Reason for hospitalization: 28yo female with psychiatric disorders, asthma and drug use here for chest pain. Please see H&P for details. Hospital Course: Patient was seen in ED on 02/08 for vaginal discharge and sent home with Diflucan for 2 doses. She completed the course but then developed left upper chest pain that was palpable and pleuritic. no recent viral illness. no trauma. No other new medications. She is still having vaginal discharge and has hx of BV. Chest pain is worse with coughing. She was hemodynamically stable on presentation. CBC, PT, PTT, CMP and D-dimer were all within normal limits. Chest x-ray clear. Chest CTA showed no PE and no other acute findings. CTA of the abdomen pelvis showed no acute findings. Her aorta was normal. Lipase normal. Troponin was mildly elevated but flat at 0.08. Urinalysis showed 1+ leukocyte Estrace, 3-5 red cells and 11-20 white cells. This did prompt a urine culture. Urine drug screen was positive for opiates, cocaine and marijuana. She admits to using marijuana. She denies cocaine use but did use ecstasy a few days prior to admission. Hepatitis panel is pending. HIV is negative. BV testing pending. She was started on Flagyl and side effects were discussed. EKG was normal. Cardiology was consulted. Echocardiogram was performed which showed EF of 60-65% with normal diastolic function and normal RV systolic function. She had mild mitral regurgitation and mild tricuspid regurgitation. Pain medications were used for her chest pain. The chest pain was felt to be costochondritis. She was educated about the benefits abstain from tobacco use and drug use. Elevated troponins are probably related to cocaine use. She overall did well was able be discharged home on 02/12/2024. Status at Discharge Cognitive/behavioral status at discharge: Stable Time Spent with Patient Time attestation: Total time spent providing and/or coordinating discharge services: 39 minutes Time spent: Greater than 30 minutes Exam Narrative: AF 97.1 110/72 62 18 100%ra Gen - NARD Neck - soft, smooth goiter. Normal ROM to the neck. No dominant masses appreciated Chest - CTA bilaterally, nml RR. Palpable left upper chest wall pain. CV - RRR S1/S2. Tele showing no significant dysrhythmias Abd - Soft, NT/ND, Positive BS Ext - No pedal edema. normal ROM to the left shoulder without worsening the left upper chest pain Psych - Nml mood and affect Skin - Warm and dry DS: Data Data Completed and Pending Labs on day of discharge: Labs from last 24 hours 02/12/24 02/12/24 02/12/24 15:06 04:09 04:05 WBC 8.2 RBC 4.08 L Hgb 13.1 Hct 40.8 MCV 100.0 MCH 32.1 MCHC 32.1 RDW 12.9 Plt Count 261 MPV 9.7 Immature Gran % (Auto) 0.1 Neut % (Auto) 49.2 Lymph % (Auto) 36.4 [place] % (Auto) 8.3 Eos % (Auto) 5.6 H Baso % (Auto) 0.4 Lymph # (Auto) 3.00 [place] # (Auto) 0.7 H Eos # (Auto) 0.5 H Baso # (Auto) 0.0 Abs Immat Gran (auto) 0.01 Absolute Neuts (auto) 4.1 Absolute Nucleated RBC 0.000 Nucleated RBC % 0.0 Sodium 134 L Potassium 3.9 Chloride 108 H Carbon Dioxide 25 Anion Gap 1 L BUN 11 Creatinine 0.70 Estim Creat Clear Calc 88 Estimated GFR > 60 Glucose 91 Calcium 8.1 L Magnesium Total Bilirubin 0.4 AST 16 ALT 14 Alkaline Phosphatase 56 Troponin I Total Protein 5.0 L Albumin 3.1 L
--- NOTE | 2024-02-13 09:05 | PC.NURSE ---
Urine cx shows Group B Streptococcus. Dr. Kearney aware. Urine cx results faxed to PCP- CHRISTI Palencia.
[2024-02-13 12:53] LABS: Hepatitis B Surface Antigen Negative (Negative)
[2024-02-13 12:58] LABS: HAV RESULT Negative (Negative); Hepatitis B Core IgM Result Negative (Negative)
[2024-02-13 13:10] LABS: Hepatitis C Virus Antibody Negative (Negative)
[2024-02-13 22:58] LABS: Bacterial Vaginosis POSITIVE (NEGATIVE)
--- NOTE | 2024-02-17 10:20 | PC.NURSE ---
Bacterial vaginosis is positve. Hepatitis panel is negative. Dr. Christel parker.
--- NOTE | 2024-02-18 07:45 | PC.NURSE ---
Bacteria Vaginosis results were sent to Dr. Hammonds.
== END 2024-02-12 16:37 | disposition home or self-care (01) ==
LOC: ANHED 16:28 → ANHIMU 17:10
PROVIDERS: Emergency Medicine; Student in an Organized Health Care Education/Training Program; Admitting Provider Hospitalist; Emergency Provider Nurse Practitioner Family; PCP Physician Assistant; Visit Provider Internal Medicine
DX: R07.89 Other chest pain (principal); R79.89 Other specified abnormal findings of blood chemistry; F31.9 Bipolar disorder, unspecified; F41.9 Anxiety disorder, unspecified; F17.210 Nicotine dependence, cigarettes, uncomplicated; F12.20 Cannabis dependence, uncomplicated; F14.90 Cocaine use, unspecified, uncomplicated; F11.90 Opioid use, unspecified, uncomplicated; Z11.4 Encounter for screening for human immunodeficiency virus [HIV]; Z79.899 Other long term (current) drug therapy
CPT/HCPCS: 36415; 71046; 71275; 74174; 80053; 80061; 80074; 80307; 81001; 81513; 83690; 83735; 84443; 84484; 85025; 85380; 85610; 85730; 86703; 87086; 87088; 87147; 93005; 93306; 96374; 96375; 96376; 99285; A9270; G0378; G0379; G0432; J1170; J1885; J2270; J2405; J7030; Q9967

== ENCOUNTER 2024-02-19 17:06 | Emergency (ER) | payer OTHER, SELFPAY ==
--- NOTE | 2024-02-19 17:09 | ED.FEMALEGU ---
HPI - Female Genitourinary General Chief complaint: Urogenital-Female Stated complaint: Yeast Infection Time Seen by Provider: 02/19/24 17:08 Source: patient Mode of arrival: ambulatory Limitations: no limitations History of Present Illness HPI Narrative: Patient is a 28-year-old female that presents with white thick vaginal discharge and severe vaginal itching. Patient was treated for a yeast infection with fluconazole 01/19 and 02/08. Patient states she took medication as directed and symptoms have still not resolved. Denies any burning with urination, urgency or frequency. Denies any flank pain, fever, chills, nausea, vomiting, diarrhea. MD elicited complaint: dysuria Related Data Home Medications Medication Instructions Recorded Confirmed clonidine HCl 0.1 mg tablet 0.1 mg PO DAILY 04/17/23 02/19/24 aripiprazole 15 mg tablet 5 mg PO DAILY 09/09/23 02/19/24 clonazepam 1 mg tablet 1 mg PO BID 09/09/23 02/19/24 fluoxetine 20 mg capsule 20 mg PO DAILY 09/09/23 02/19/24 trazodone 50 mg tablet 50 mg PO QHS 09/09/23 02/19/24 Valtrex 1 g BYMOUTH PRN PRN breakout 02/11/24 02/19/24 Allergies Allergy/AdvReac Type Severity Reaction Status Date / Time shellfish derived Allergy Unknown Anaphylactic Verified 02/19/24 17:08 Shock Review of Systems Review of Systems: All systems reviewed & are unremarkable except as noted in HPI and below Constitutional: Constitutional: Denies chills, Denies fever(s), Denies headache(s), Denies malaise and Denies weakness Eyes: Eyes: Denies change in vision, Denies eye discharge and Denies irritation ENT: Denies otalgia, Denies headache(s), Denies nasal congestion, Denies nasal discharge, Denies sinus pain and Denies sore throat Cardiovascular: Cardiovascular: Denies chest pain, Denies edema, Denies palpitations and Denies dyspnea Respiratory: Respiratory: Denies cough and Denies dyspnea Gastrointestinal: Gastrointestinal: Denies abdominal pain, Denies diarrhea, Denies nausea and Denies vomiting Genitourinary: Genitourinary: Denies hematuria, Denies nocturia, Denies dysuria, Denies flank pain, Denies urinary urgency, Reports vaginal discharge and Reports vaginal pruritus Musculoskeletal: Musculoskeletal: Denies back pain and Denies numbness Integumentary/Breasts: Skin/Breast: Denies pruritus and Denies rash Neurologic: Denies headache(s), Denies numbness and Denies weakness Psychiatric: Psychiatric: Reports no additional psychiatric complaints Endocrine: Endocrine: Denies palpitations PMFSH Past Medical History Medical History Anxiety Asthma Bipolar disorder delivery delivered Conversion disorder Endometriosis GERD (gastroesophageal reflux disease) Hx of migraines IBS (irritable bowel syndrome) MRSA (methicillin resistant staph aureus) culture positive Post traumatic stress disorder (PTSD) Surgical History Surgical History H/O section X3 History of hysterectomy Family History Family History Father Alive and well Mother Alive and well Social History Social History Smoking packs per day: 0.5 Smoking cigarettes per day: 10.0 Years smoked: 4 Smoking pack-years: 2.00 Smoking status: Current every day smoker Tobacco type: cigarettes Second hand tobacco smoke exposure: No Alcohol intake: current Drinks per week: 3 Substance use: current Substance use type: marijuana Do You Feel Safe in your Home?: Yes Lack of Transportation: No Lack of Food: Sometimes True Current Housing: I Have Housing Concerned About Future Housing: YES Difficulty Paying Gas/Electric Bills: YES Difficulty Paying for Meds: YES Currently Unemployed: No Education: High School Diploma/GED Difficulty w/ Childcare or Family Ca
[2024-02-19 17:17] VITALS: BP 117/78; PULSE 78; RESP 16; TEMP 36.9; O2SAT 100
== END 2024-02-19 18:13 | disposition home or self-care (01) ==
PROVIDERS: Emergency Provider Nurse Practitioner Family; PCP Physician Assistant
DX: B37.31 Acute candidiasis of vulva and vagina (principal); F17.210 Nicotine dependence, cigarettes, uncomplicated; F12.90 Cannabis use, unspecified, uncomplicated; N80.9 Endometriosis, unspecified; K21.9 Gastro-esophageal reflux disease without esophagitis; Z86.14 Personal history of Methicillin resistant Staphylococcus aureus infection; J45.909 Unspecified asthma, uncomplicated; F41.9 Anxiety disorder, unspecified
CPT/HCPCS: 81003; 81025; 87086; 99213; G0463

== ENCOUNTER 2025-04-02 12:47 | Emergency (ER) | payer OTHER, SELFPAY ==
--- OUTSIDE RECORDS SUMMARY | 2025-04-02 12:49 | XMS_ITS | Clinical Summary ---
Author Organization [facility] Address [address] [facility] [place] [address] Phone Care Team Providers Care Tester [employer] Name Role Phone ParentCookie JULIO Primary Care Provider [phone] Allergies No known active allergies Medications ondansetron (ZOFRAN-ODT) 4 MG TABLET DISPERSIBLE Take 1 Tablet by mouth every 6 hours as needed for Nausea - 1st line. 10 Tablet 2 Active HYDROcodone-acet aminophen (NORCO) 5-325 MG TabletIndication s:Cellulitis of left breast Take 1 Tablet by mouth every 6 hours as needed for Moderate or more severe pain. 12 Tablet 3 Active HYDROcodone-acet aminophen (NORCO) 5-325 MG TabletIndication s:Left knee injury, initial encounter Take 1 Tablet by mouth every 6 hours as needed for Moderate or more severe pain. 12 Tablet 4 Active naproxen (NAPROSYN) 500 MG Tablet Take 1 Tablet by mouth 2 times daily as needed for Mild or more severe pain. 20 Tablet 4 Active Social History Tobacco Use Types Packs/Day Years Used Date Smoking Tobacco: Every Day Cigarettes Smokeless Tobacco: Never Tobacco Cessation:Ready to Q uit: Not Asked; Counseling Given: Not Answered Comments No Sex and Gender Information Value Date Recorded Sex Assigned at Not on file Legal Sex Female 6:01 PM CDT Gender Identity Not on file Sexual Orientation Not on file Last Filed Vital Signs Vital Sign Reading Time Taken Comments Blood Pressure 130/88 10/26/2023 4:00 PM LAP CUTTER Pulse 111 10/26/2023 4:00 PM LAP CUTTER Temperature 36.6 C (97.8 F) 10/26/2023 1:12 PM LAP CUTTER Respiratory Rate 17 10/26/2023 4:00 PM LAP CUTTER Oxygen Saturation 100% 10/26/2023 4:00 PM LAP CUTTER Inhaled Oxygen Concentration - - Weight 77.1 kg (170 lb) 10/26/2023 1:12 PM LAP CUTTER Height 162.6 cm (5' 4) 10/26/2023 1:12 PM LAP CUTTER Body Mass Index 29.18 10/26/2023 1:12 PM LAP CUTTER Plan of Treatment Health Maintenance Due Date Last Done Comments Hepatitis C Virus (HCV) Screening 1994 Human Papillomavirus (HPV) Immunization (1 - 3-dose series) 2009 SARS-COV-2 Immunization ( season) 2024 03/12/2021, 02/18/2021 Influenza Immunization (#1) 05/09/202505/10, 07/03/2020, 07/30/2019, Additional history exists Respiratory Syncytial Virus (RSV) Immunization (Adult) (1 - 1-dose 75+ series) 2069 Hepatitis B Immunization Completed 995, 1994, 1994, Additional history exists DTaP/Tdap/Td Immunization Discontinued 2014, 11/04/1995, 04/22/1995, Additional history exists TdaP Immunization Completed 03/20/2015 Meningococcal Immunization (ACWY) Aged Out No longer eligible based on patient's age to complete this topic Pneumococcal Immunization Combined Aged Out No longer eligible based on patient's age to complete this topic Rotavirus Immunization Aged Out No lo nger eligible based on patient's age to complete this topic Insurance MEDICAID [employer] Care Teams Tester [employer]ocket [employer] Relationship Specialty Start Date End Date Cookie Donovan PAC [address] [place] [address] PCP - General Physician Combination Window Installer 11/21/22
--- OUTSIDE RECORDS SUMMARY | 2025-04-02 12:49 | XMS_ITS | Clinical Summary ---
Author Organization [facility] Address [address] [place] [address] Care Team Providers Care Model Maker Plastic Name Role Phone Parent, Cookie BARRAZA Primary Care Provider [phone] Shine Denson MD Unavailable [phone] Allergies Active Allergy Reactions Criticality Noted Date Comments Shellfish Anaphylaxis,Hives High 02/23/2015 Throat tightness, lips swelling Medications valACYclovir (VALTREX) 1 gram tablet Take 1 tablet (1,000 mg total) by mouth 2 (two) times a day as needed Active clonazePAM (KlonoPIN) 1 mg tablet Take 1 tablet (1 mg total) by mouth 3 (three) times a day Active cetirizine (ZyrTEC) 10 mg tablet Take 1 tablet (10 mg total) by mouth daily 5 Active fluticasone propionate (FLONASE) 50 mcg/actuation nasal spray Administer 2 sprays into each nostril daily 5 Active lurasidone (LATUDA) 20 mg tablet Take 1 tablet (20 mg total) by mouth daily 5 Active simethicone (MYLICON) 125 mg chewable tablet Take 1 tablet (125 mg total) by mouth 4 (four) times a day as needed (cramping/bloati ng/gas/nausea) 120 tablet 3 5 Active polyethylene glycol (MIRALAX) 17 gram/dose bulk powder Take 1 capful daily as needed for constipation management. 595 g [address] (PROTONIX) 40 mg EC tablet Take 1 tablet (40 mg total) by mouth daily 90 tablet 3 5 Active Active Problems Problem Noted Date Diagnosed Date Esophageal dysphagia 12/16/2024 Blood in stool 12/16/2024 Constipation 12/16/2024 Anal fissure 10/28/2024 Rectal pain 09/25/2024 Bright red blood per rectum 08/17/2024 External hemorrhoids without complication 2023 Ruptured ovarian cyst 12/02/2023 Right lower quadrant abdominal pain 12/02/2023 Nausea and vomiting 12/02/2023 Folliculitis 03/13/2022 Mastitis of left breast unre lated to or 10/15/2020 Assessment & Plan (10/15/2020 9:57 AM COMMUNITY RELATIONS SPECIALIST): With the worsening symptoms (nausea and fever) it is recommended she go to the ER for further evaluation. She has been hospitalized in the past with cellulitis and required IV antibiotics. The area may need to be opened and drained. Dizziness 08/14/2020 Migraine with typical aura 07/14/2020 Transient alteration of awareness 07/14/2020 Memory disturbance 07/14/2020 Disturbance of skin sensation 07/14/2020 Abnormal EKG 05/01/2020 Chest pain 05/01/2020 Tachycardia 05/01/2020 Tobacco abuse 05/21/2019 Vasovagal syncope 05/21/2019 IBS (irritable bowel syndrome) 04/22/2019 contractions 05/26/2018 Overview (05/26/2018): - Presented to [facility] 05/26 with increased contractions - SVE FT/50/-3 (from closed in the office previously) - Started on BMZ, Mg, and Indocin and transferred to [facility] for further care Plan: - Repeat SVE at admission /ballotable - No evidence of ROM, abruption, or cervical infection on exam - Will continue BMZ and Mg. Will add PCN for GBS unknown and GA - Will continue Indocin q6h through steroid window - BSUS with AGA fetus. Pediatrics consulted at admission - UCx, GC/CT, and GBS collected at admission - PNL unavailable. Will request from [facility] and further request records from primary OB in AM - For continuous monitoring and serial exams - Should she progress to delivery, she desires to breast feed and Patch or Nuvaring for contraception. She also is interested in an IUD but understands placement may be contraindicated with History of 05/26/2018 Overview (05/26/2018): - History of x2 with both prior deliveries. Per patient report both LTCS but no operative records available Asthma, mild intermittent 02/22/2018 Overview (05/26/2018): - Reports history of intermittent asthma. Does not take daily medication - Asymptomatic at admission - Albuterol prn Bicornuate uterus affecting , antepartu m 02/22/2018 Depression 02/22/2018 Overview (05/26/2018): - History of anxiety/depression. Was previously on Zoloft but discontinued with - Also reports history of depression requiring medication - Mood stable at admission. Denies SI/HI Anemia 03/20/2015 Overview (05/01/2020): Recent Labs Component Name 03/20/15 1300 02/23/15 2229 WBC 8.0 14.8* HGB 9.5* 9.7* HCT 29.4* 29.5* PLTCOUNT 226 322 MCV wnl, Ferritin 3 Taking iron BID Recent Labs Component Name 03/20/15 1300 02/23/15 2229 WBC 8.0 14.8* HGB 9.5* 9.7* HCT 29.4* 29.5* PLTCOUNT 226 322 MCV wnl, Ferritin 3 Taking iron BID Cystic fibrosis carrier 03/06/2015 Overview (02/22/2018): Overview: Carrier status known to patient from [facility] . R117H/5T FOB was tested in first , is not a carrier Bicornuate uterus 03/06/2015 Overview (05/26/2018): in right horn of uterus Asthma 03/06/2015 Overview (05/01/2020): Rare albuterol use High-risk 02/06/2015 Resolved Problems Problem Noted Date Diagnosed Date Resolved Date Anal polyp 09/15/2024 10/05/2024 Encounters Date Type Department Care Team Description 03/13/2025 Results Follow-Up [facility] Gastroenterology at [address] [place] [address] Татьяна Mckeon MD Surgical pathology 03/02/2025 Telephone [facility] Gastroenterology at [address] [address] Abdias Saldaña [place] 03/01/2025 Telephone [facility] G[facility]enterology at [address] [address] [facility] [place] [facility] Ref[facility] 02/28/2025 12:00 PM CDT - 02/28/2025 12:30 PM CDT Surgery [address] [address] Татьяна Mckeon MD COLONOSCOPY 02/28/2025 11:52 AM CDT Anesthesia Event [address] [address] Shine Beckham MD Alexander, Jeffrey Michael, 02/28/2025 11:11 AM CDT - 02/28/2025 1:14 PM CDT Hospital Encounter [address] [address] Татьяна Mckeon MD Blood in stool; Constipation, unspecified constipation type; Esophageal dysphagia Discharge Disposition: Discharge to home or self care 02/24/2025 Telephone [facility] Medical Group Gastroenterology at [address] [address] Cecile Cardenas 01/18/2025 11:05 AM CDT - 01/18/2025 1:07 PM CDT Emergency [facility] Emergency Department [address] [place] [id number] Tingling (Primary Dx); Dyspnea, unspecified type Discharge Disposition: Discharge to home or self care from Last 3 Months Immunizations Immunization Administration Dates Next Due DTP / HiB 11/04/1995, 5,02/18/1995,12/17 Hep B, Adolescent or Pediatric 5,1994,1994,10/30 Influenza, Quadrivalent, Spl it, Intramuscular 07/30/2019 Influenza, Quadrivalent, Spl it, Preservative Free, Intramuscular 07/03/2020,05/27/2018 Influenza, Trivalent, IM (MDV) 07/06/2014 Influenza, Unspecified 06/06/2021 MMR 05/22/2015,06/05/2014,11/04/1995 OPV 04/22/1995,02/18/1995,1994 Tdap 03/20/2015 Surgical History Surgery Date Site/Laterality Comments SECTION x3 WISDOM TOOTH EXTRACTION HYSTERECTOMY OTHER SURGICAL HISTORY 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 OTHER SURGICAL HISTORY 09/24/2024 EXAM UNDER ANESTHESIA, EXCISION ANAL POLYP ANAL FISSURECTOMY 09/08/2024 - 10/08/2024 COLONOSCOPY 02/28/2025 Medical History Medical History Date Comments Abnormal Pap smear of cervix LSI L +HPV 2017 Depression Bronchitis IBS (irritable bowel syndrome) Vasovagal syncope Tachycardia Anemia Migraine Asthma Dizziness Delayed emergence from general anesthesia Bipolar disorder (HCC) Anxiety PONV (postoperative nausea and vomiting) Fissure, anal Family History Medical History Relation Name Comments No Known Problems Father Colon cancer Maternal Grandmother No Known Problems Mother Colon cancer Paternal Grandfather Relation Name Status Comments Father Alive Maternal Grandmother Mother Alive Paternal Grandfather Social History Tobacco Use Types Packs/Day Years Used Date Smoking Tobacco: Every Day Cigarettes 0.3 13 Smokeless Tobacco: Never Tobacco Cessation:Ready to Q uit: Not Asked; Counseling Given: Not Answered Alcohol Use Standard Drinks/Week Comments No 0 (1 standard drink = 0.6 oz pur e alcohol) AUDIT-C Answer Date Recorded Q1: How often do you have a drink containing alcohol? Never 02/24/2025 Q2: How many drinks containi ng alcohol do you have on a typical day when you are drinking? Patient does not drink Q3: How often do you have si x or more drinks on one occasion? Never 02/24/2025 Personal Safety Answer Date Recorded Have you ever been in or are you currently in a harmful physical or emotional relationship or is someone making you feel afraid or unsafe? Denies 02/28/2025 Comments No Sex and Gender Information Value Date Recorded Sex Assigned at Not on file Legal Sex Female 9:55 PM COMMUNITY RELATIONS SPECIALIST Gender Identity Female 10/15/2020 9:15 AM COMMUNITY RELATIONS SPECIALIST Sexual Orientation Not on file Obstetrics History Para Term AB IAB SAB Ectopic Multiple Livin g Live Births 3 2 2 2 2 Date Outcome GA Total Labor Labor/2nd/3rd Weight Sex Type Anes PTL Yvonne A1 A5 Name Clin 4 33w 0d M CS-LT ranv Spinal Y Livin g Complications:Breech 5 36w 0d M CS-LT ranv Spinal Y Livin g Comments rCS for breech, on 17-OHP Last Filed Vital Signs Vital Sign Reading Time Taken Comments Blood Pressure 97/62 02/28/2025 12:42 PM CDT Pulse 64 02/28/2025 12:42 PM CDT Temperature 36.4 C (97.6 F) 02/28/2025 12:42 PM CDT Respiratory Rate 16 02/28/2025 12:42 PM CDT Oxygen Saturation 100% 02/28/2025 12:42 PM CDT Inhaled Oxygen Concentration - - Weight 69.9 kg (154 lb) 02/28/2025 11:22 AM CDT Height 162.6 cm (5' 4) 02/28/2025 11:22 AM CDT Body Mass Index 26.43 02/28/2025 11:22 AM CDT Plan of Treatment Health Maintenance Due Date Last Done Comments Depression Screening 1994 Hepatitis C Screening 1994 Varicella Vaccines (1 of 2 - 13+ 2-dose series) 2007 Regular Well Visit/Exam 18-64 2012 Pneumococcal vaccine <65 (1 of 2 - PCV) 2013 HPV Vaccines (1 - 3-dose SCD M series) 2021 DTaP/Tdap/Td Vaccine (6 - Td or Tdap) 03/20/2025 03/20/2015, 11/04/1995, 04/22/1995, Additional history exists Influenza Vaccine (#1) 2025 , 07/03/2020, 07/30/2019, Additional history exists Hepatitis B Screening Completed 04/22/1995 , 1994, 1994, Additional history exists Procedures Procedure Name Priority Date/Time Associated Diagnosis Comments ESOPHAGOGASTRODUODENOSCOPY BIOPSY 02/28/2025 11:45 AM CDT Blood in stool Constipation, unspecified constipation type Esophageal dysphagia COLONOSCOPY 02/28/2025 11:45 AM CDT Blood in stool Constipation, unspecified constipation type Esophageal dysphagia EGD 02/28/2025 11:11 AM CDT COLONOSCOPY 02/28/2025 11:03 AM CDT SURGICAL PATHOLOGY STAT 02/28/2025 9:17 AM CDT Blood in stool Constipation, unspecified constipation type Esophageal dysphagia XR CHEST 1 VIEW ED 01/18/2025 12:22 PM CDT EGFR STAT 01/18/2025 11:41 AM CDT DIFFERENTIAL AUTO STAT 01/18/2025 11:41 AM CDT MAGNESIUM Routine 01/18/2025 11:41 AM CDT COMPREHENSIVE METABOLIC PANEL STAT 11:41 AM CDT CBC WITH AUTO DIFFERENTIAL STAT 01/18 11:41 AM CDT URINALYSIS AND REFLEX TO MICROSCOPIC AND CULTURE STAT 01/18/2025 10:48 AM CDT from Last 3 Months Results * EGD (02/28/2025 11:11 AM CDT) Anatomical Region Laterality Modality Other Narrative Procedure Note Татьяна Mckeon MD - 02/28/2025 11:11 AM CDT [facility] Patient Name: Matthew Masters Procedure Date: 02/28/2025 11:11 AM Date of : 1995 Admit Type: Outpatient Age: 29 Gender: Female Attending MD: Татьяна Mckeon M.D. Room: [facility] END[facility]COPY RO[facility] 1 Note Status: Finalized Patient Profile: This is a 29 year old female. Patient complained of difficulty swallowing. She is smoker. Her son has eosinophilic esophagitis. She takes Protonix 40 mg daily. Has some dyspepsia symptoms. Procedure: Upper GI endoscopy Indications: Dysphagia Referring MD: Cookie Donovan PA-C Providers: Татьяна Mckeon M.D. Impression: - Normal examined duodenum. Biopsied. - Erythematous mucosa in the prepyloric region ofthe stomach likely nonspecific finding. Biopsied. - Normal esophagus. Biopsied. Recommendation: - Await pathology results. - Continue present medications. Medicines: Monitored Anesthesia Care Complications: No immediate complications. Estimated Blood Loss: Estimated blood loss: none. Procedure: Pre-Anesthesia Assessment: - Prior to the procedure, a History and Physicalwas performed, and patient medications and allergieswere reviewed. The patient's tolerance of previous anesthesia was also reviewed. The risks andbenefits of the procedure and the sedation options and risks were discussed with the patient. All questions were answered, and informed consent was obtained. Prior Anticoagulants: The patient has taken noanticoagulant or antiplatelet agents. ASA Grade Assessment: Per anesthesia note and evaluation. After reviewing the risks and benefits, the patient was deemed in satisfactory condition to undergo the procedure. The benefits, risks, and alternatives to theprocedure and sedation were discussed and informed consentwas obtained. The scope was passed under direct vision. The Endoscope GIF-H190 [id number] was introduced through the mouth, and advanced to the second partof duodenum. The upper GI endoscopy was accomplished without difficulty. The patient tolerated the procedure well. Findings: The examined duodenum was normal. Biopsies were taken with a cold forceps for histology. Striped mildly erythematous mucosa without bleeding was found in the prepyloric region of the stomach likely nonspecific. Biopsies weretaken with a cold forceps for histology. Retroflexion stomach in thegastric fundus and body and cardia were all with a normal The GE junction 40 cm was normal. The examined esophagus body was normal. Biopsies were taken with a cold forceps for histology. Electronically signed by Татьяна Mckeon M.D. Татьяна Mckeon M.D. 02/28/2025 12:24:34 PM Number of Addenda: 0 Note Initiated On: 02/28/2025 11:11 AM Procedure Code(s): --- Professional --- 03109, Esophagogastroduodenoscopy, flexible, transoral; with biopsy, single or multiple Diagnosis Code(s): --- Professional --- K31.89, Other diseases of stomach and duodenum R13.10, Dysphagia, unspecified CPT copyright 2020 [employer]. All rights reserved. The codes documented in this report are preliminary and upon fisher scallop reviewmay be revised to meet current compliance requirements. Recognized by the [employer] for promoting quality in endoscopy us Татьяна Mckeon MD ENDOSCOPY PROCEDURES Final Result * Colonoscopy (02/28/2025 11:03 AM CDT) Anatomical Region Laterality Modality Other Narrative Procedure Note Татьяна Mckeon MD - 02/28/2025 11:03 AM CDT [facility] Patient Name: Matthew Masters Procedure Date: 02/28/2025 11:03 AM Date of : 1995 Admit Type: Outpatient Age: 29 Gender: Female Attending MD: Татьяна Mckeon M.D. Room: [facility] 1 Note Status: Finalized Patient Profile: This is a 29 year old female. Patient has aepisodes of bright red bleeding per rectum. History of anal fissure and she has surgery about 6 months ago. The grandparent had colon cancer. Procedure: Colonoscopy Indications: Last colonoscopy 10 years ago, Rectal bleeding Referring MD: Cookie Donovan PA-C Providers: Татьяна Mckeon M.D. Impression: - Anal fissure found on perianal exam. - Small internal hemorrhoids. - Normal colonoscopy otherwise. - No specimens collected. Recommendation: - Repeat colonoscopy at age 44 for screeningpurposes. - Use lruu-uum-tvupppp fiber supplements oncedaily. - Use the fissure ointment(0.4 % nitroglycerin once daily per anus for 6 weeks). Prescriptionprovided. Medicines: Monitored Anesthesia Care Complications: No immediate complications. Estimated Blood Loss: Estimated blood loss: none. Procedure: Pre-Anesthesia Assessment: - Prior to the procedure, a History and Physicalwas performed, and patient medications and allergieswere reviewed. The patient's tolerance of previous anesthesia was also reviewed. The risks andbenefits of the procedure and the sedation options and risks were discussed with the patient. All questions were answered, and informed consent was obtained. Prior Anticoagulants: The patient has taken noanticoagulant or antiplatelet agents. ASA Grade Assessment: Per anesthesia note and evaluation. After reviewing the risks and benefits, the patient was deemed in satisfactory condition to undergo the procedure. The benefits, risks and alternatives of theprocedure and sedation were discussed and informed consentwas obtained. All questions were answered. Please referto the signed informed consent document in the medical record. The scope was passed under direct vision.The Pediatric Colonoscope PCF-H190L [id number] was introduced through the anus and advanced to the the cecum, identified by appendiceal orifice andileocecal valve. The bowel preparation used was Miralax and bisacodyl tablets via extended prep with split dose instruction. The quality of the bowel preparationwas good. Bowel prep was administered using a splitdose. Findings: An anal fissure was found on perianal exam. The cecum appeared normal. The terminal ileum was intubated andappeared normal. The colon (entire examined portion) appeared normal. Polyps and nomass lesions noted in the colon. Internal hemorrhoids were found during retroflexion. The hemorrhoids were small. Electronically signed by Татьяна Mckeon M.D. Татьяна Mckeon M.D. 02/28/2025 12:31:51 PM Number of Addenda: 0 Note Initiated On: 02/28/2025 11:03 AM Procedure Code(s): --- Professional --- 05651, Colonoscopy, flexible; diagnostic, including collection of specimen(s) by brushing or washing, when performed (separateprocedure) Diagnosis Code(s): --- Professional --- K60.2, Anal fissure, unspecified K64.8, Other hemorrhoids K62.5, Hemorrhage of anus and rectum CPT copyright 2020 [employer]. All rights reserved. The codes documented in this report are preliminary and upon fisher scallop reviewmay be revised to meet current compliance requirements. Recognized by the [employer] for promoting quality in endoscopy Татьяна Mckeon MD ENDOSCOPY PROCEDURES Final Result * Surgical pathology (02/28/2025 9:17 AM CDT) Tissue (Gastric/Stomach biopsy) 02/28/2025 11:58 AM CDT Tissue specimen (specimen) (Small bowel, biopsy) 02/28/2025 12:00 PM CDT Tissue specimen (specimen) (Esophageal biopsy) 02/28/2025 12:01 PM CDT Narrative PATHOLOGY [facility] - 03/02/2025 2:13 PM CDT EPIC results best viewed via link to PDF [facility] Department of Pathology [address] [place] [address] Note to Patients: This report may contain a detailed description of human tissue sent by a health care provider to the laboratory for pathologic evaluation. The content of this report is essential for diagnosis and may provide important critical findings. This information may be unfamiliar to patients to review without a medical professional present. It is advised that the patient review this report in the presence of a health care provider who can answer questions and explain the details. Final Report Patient Name: MATTHEW MASTERS. Address: [address] [place] [address], [place] [address] Gender: F : 1995 (Age: 29) Service: Gastro Location: [facility] Hospital #: [id number] Patient Type: [facility] Taken: 02/28/2025 Received: 03/01/2025 Accessioned: 03/01/2025 Reported: 03/02/2025 Physician(s):Dr. Татьяна Mckeon M.D. Diagnosis: A. Stomach, biopsy: - Antral type gastric mucosa showing mild chronic inactive gastritis. - Negative for intestinal metaplasia and dysplasia. - Negative for Helicobacter. B. Small intestine, biopsy: - No significant histopathologic alteration. C. Esophagus, biopsy: - Fragments of benign squamous epithelium. Fady Pineda M.D. Report Electronically Reviewed and Signed Out By Fady Pineda M.D. 03/02/2025 14:13:38 Specimen(s) Received: A: Gastric biopsies B: Small intestine biopsies C: Esophagus Biopsies Microscopic Description: A. Sections show antral-type gastric mucosa showing mild chronic inactive gastritis. No significant acute inflammatory infiltrate is seen. There is no evidence of intestinal metaplasia or dysplasia. On high power examination, no Helicobacter-like organisms are seen on H&E stain. B. Sections show fragments of benign small bowel mucosa characterized by long slender villi with no significant villous blunting seen. There is no increase in intraepithelial lymphocytes. No significant acute inflammatory infiltrate is seen. No chronic architectural changes are seen. No organisms are identified. There is no evidence of dysplasia or malignancy. C. Sections show fragments of benign squamous epithelium. No significant inflammatory infiltrate is seen. No fungal elements or viral cytopathic effect is seen. There is no evidence of dysplasia. No glandular mucosa is present. Clinical History: Blood in stool. Constipation. Esophageal dysphagia. EGD. Colonoscopy Gross Description: The specimen is submitted in three formalin containers labeled MATTHEW STONER. A. The first container is labeled gastric biopsies. It is 2 fragments of aviles tissue between 1 and 2 mm. All in A. B. The second container is labeled small intestine biopsies. It is 3 fragments of aviles tissue between 1 and 2 mm. All in B. C. The third container is labeled esophagus. It is 4 fragments of aviles tissue measuring 1 mm. All in C. T.A. Ilan Huntley., P.A./Saman Saxena M.D. REPORT IMAGES AND SCANNED DOCUMENTS, IF INCLUDED, ONLY VIEWABLE IN PDF VERSION OF REPORT The performance characteristics of some immunohistochemical stains, fluorescence in-situ hybridization tests and immunophenotyping by flow cytometry cited in this report (if any) were determined by the Surgical Pathology Department at [facility] as part of an ongoing quality project manager program and in compliance with federally mandated regulations drawn from the Clinical Laboratory Improvement Act of 1988 (CLIA '88). Some of these tests rely on the use of analyte specific reagents and are subject to specific labeling requirements by the US Food and Drug Administration. Such diagnostic tests may only be performed in a facility that is certified by the Department of Health and Human Services as a high complexity laboratory under CLIA '88. The FDA has determined that such clearance or approval is not necessary. This test is used for clinical purposes. It should not be regarded as investigational or for research. Nevertheless, federal rules concerning the medical use of analyte specific reagents require that the following disclaimer be attached to the report: This test was developed and its performance characteristics determined by the Surgical Pathology Department [facility]. It has not been cleared or approved by the U. S. Food and Drug Administration. Note for decalcified specimens: This assay has not been validated on decalcified tissues. Results should be interpreted with caution given the possibility of false negativity on decalcified specimens Татьяна Mckeon MD LAB PATHOLOGY ORDERABLES F inal Result PATHOLOGY [place] [id number] * XR Chest 1 Vw Portable (01/18/2025 12:22 PM CDT) Anatomical Region Laterality Modality Body, Chest N/A Computed Radiogr aphy 01/18/2025 12:4 6 PM CDT Narrative 01/18/2025 12:47 PM CDT EXAM DESCRIPTION: XR CHEST 1 VIEW REASON FOR STUDY: general weakness c/o pins and needles in all her fingers and bilateral legs. Pt also reports bilateral leg swelling. Pt woke up with these symptoms today. TECHNIQUE: Single frontal radiographic view(s) of the chest. COMPARISON: 10/26/2021 FINDINGS: The heart, mediastinum, and pulmonary vasculature are grossly unremarkable. There is no definite evidence of a pneumothorax. There is no definite evidence of a focal consolidation or pleural effusion. The osseous structures are acutely grossly unremarkable. IMPRESSION: No acute cardiopulmonary abnormality. THIS IS AN ELECTRONICALLY VERIFIED FINAL REPORT 01/18/2025 12:47 PM - Electronically signed by Lizeth Cordero D.O. PS: PS Report ID: [id number] Reading Location: [id number] Procedure Note Puja Corderojane Praveen, DO - 01/18/2025 EXAM DESCRIPTION: XR CHEST 1 VIEW REASON FOR STUDY: general weakness c/o pins and needles in all her fingers and bilateral legs. Pt alsoreports bilateral leg swelling. Pt woke up with these symptoms today. TECHNIQUE: Single frontal radiographic view(s) of the chest. COMPARISON: 10/26/2021 FINDINGS: The heart, mediastinum, and pulmonary vasculature are grosslyunremarkable. There is no definite evidence of a pneumothorax. There is no definite evidence of a focal consolidation or pleural effusion. The osseous structures are acutely grossly unremarkable. IMPRESSION: No acute cardiopulmonary abnormality. THIS IS AN ELECTRONICALLY VERIFIED FINAL REPORT 01/18/2025 12:47 PM - Electronically signed by Lizeth Cordero D.O. PS: PS Report ID: [id number] Reading Location: [id number] Huong BARRAZA IMG XR PROCEDURES Final Result * eGFR (01/18/2025 11:41 AM CDT) eGFR >90 >=60 mL/min/1. 73 m2 Comment: Interpretive Data Reference Interval Normal >/= 90 mL/min/1.73m2 Mildly decreased* 60 - 89 mL/min/1.73m2 Mildly to moderately decreased 45 - 59 mL/min/1.73m2 Moderately to severely decreased 30 - 44 mL/min/1.73m2 Severely decreased 15 - 29 mL/min/1.73m2 Kidney Failure < 15 mL/min/1.73m2 *Relative to young adult level Estimated glomerular filtration rate is determined by the 2020 CKD-EPI equation recommended by the National Kidney Foundation (A Unifying Approach to GFR Estimation: Recommendations of the NKF-ASK Task Force on Reassessing the Inclusion of Race in Diagnosing Kidney Disease, JASN 2020). The CKD-EPI equation should not be used for patients with unstable renal function and has not been validated in children and those over 70. Current interpretive data was last reviewed 2021. Blood 01/18/2025 11:4 1 AM CDT 01/18/2025 11:44 AM CDT us Huong BARRAZA LAB BLOOD ORDERABLES Final Resu lt [facility] ([place]) 1 [facility] Department [place] [address] * Differential, auto (01/18/2025 11:41 AM CDT) Neutrophil abs 3.94 1.50 - 6.50 K/cumm Imm gran abs 0.01 0.00 - 0.10 K/cumm [facility] ([place]) Lymphocyte abs 2.00 0.80 - 3.30 K/cumm [facility] ([place]) Monocyte abs 0.65 0.20 - 0.80 K/cumm [facility] ([place]) Eosinophil abs 0.47 0.00 - 0.50 K/cumm [facility] ([place]) Basophil abs 0.03 0.00 - 0.10 K/cumm [facility] ([place]) Neutrophil pct 55.5 % [facility] ([place]) Comment: Interpretive Data Percent cell count reference ranges are not reported, since discordance with absolute values may lead to misinterpretation of CBC data. Current Interpretive Data was last revised on 2017. Imm gran pct 0.1 % [facility] ([place]) Comment: Interpretive Data Percent cell count reference ranges are not reported, since discordance with absolute values may lead to misinterpretation of CBC data. Current Interpretive Data was last revised on 2017. Lymphocyte pct 28.2 % [facility] ([place]) Comment: Interpretive Data Percent cell count reference ranges are not reported, since discordance with absolute values may lead to misinterpretation of CBC data. Current Interpretive Data was last revised on 2017. Monocyte pct 9.2 % [facility] ([place]) Comment: Interpretive Data Percent cell count reference ranges are not reported, since discordance with absolute values may lead to misinterpretation of CBC data. Current Interpretive Data was last revised on 2017. Eosinophil pct 6.6 % [facility] ([place]) Comment: Interpretive Data Percent cell count reference ranges are not reported, since discordance with absolute values may lead to misinterpretation of CBC data. Current Interpretive Data was last revised on 2017. Basophil pct 0.4 % [facility] ([place]) Comment: Interpretive Data Percent cell count reference ranges are not reported, since discordance with absolute values may lead to misinterpretation of CBC data. Current Interpretive Data was last revised on 2017. Blood 01/18/2025 11:4 1 AM CDT 01/18/2025 11:44 AM CDT us Huong BARRAZA LAB BLOOD ORDERABLES Final Resu lt [facility] ([place]) 1 [facility] Department [place] [address] * (ABNORMAL) CBC with auto differential (01/18/2025 11:41 AM CDT) WBC 7.10 3.80 - 9.90 K/cumm Hgb 13.1 11.9 - 15.5 g/dL [facility] ([place]) Hct 38.6 35.6 - 45.5 % [facility] ([place]) Plt 250 150 - 400 K/cumm [facility] ([place]) MPV 8.7(L) 9.1 - 12.3 fL [facility] ([place]) RBC 4.04 3.90 - 5.20 M/cumm [facility] ([place]) MCV 95.5 81.3 - 96.4 fL [facility] ([place]) MCH 32.4 27.1 - 33.3 pg [facility] ([place]) MCHC 33.9 32.3 - 35.7 g/dL [facility] ([place]) RDW CV 11.9 11.1 - 14.9 % [facility] ([place]) RDW SD 41.3 35.7 - 48.1 fL [facility] ([place]) NRBC abs 0.00 0.00 - 0.01 K/cumm [facility] ([place]) Blood 01/18/2025 11:4 1 AM CDT 01/18/2025 11:44 AM CDT Huong Stringer [place] LAB BLOOD ORDERABLES Final Resu lt [facility] ([place]) 1 [facility] [place] [address] * Magnesium (01/18/2025 11:41 AM CDT) Pathologist [facility] Magnesium 2.1 1.4 - 2.5 mg/dL Blood 01/18/2025 11:4 1 AM CDT 01/18/2025 11:44 AM CDT Huong Stringer [place] LAB BLOOD ORDERABLES Final Resu lt Performing Organization Address City/[facility]/ZIP Co de Phone Number [facility] ([place]) 1 [facility] [place] [address] * (ABNORMAL) Comprehensive metabolic panel (01/18/2025 11:41 AM CDT) Sodium 136 135 - 145 mmol/L Potassium, pl 4.2 3.3 - 4.9 mmol/L [facility] ([place]) Chloride 103 97 - 110 mmol/L [facility] ([place]) CO2 23 22 - 32 mmol/L [facility] ([place]) Anion gap 10 2 - 15 mmol/L [facility] ([place]) BUN 7 6 - 25 mg/dL [facility] ([place]) Creatinine 0.70 0.60 - 1.10 mg/dL [facility] Glucose 100 70 - 199 mg/dL [facility] ([place]) Comment: Interpretive Data Fasting glucose >/= 126 mg/dl is diagnostic for diabetes. Fasting is defined as no caloric intake for at least 8 hours. Fasting glucose between 100 mg/dl to 125 mg/dl is diagnostic of prediabetes. In a patient with classic symptoms of hyperglycemia or hyperglycemic crisis, a random glucose >/= 200 mg/dl is diagnostic for diabetes. In the absence of unequivocal hyperglycemia, results should be confirmed by repeat testing. The classification and Diagnosis of Diabetes Diabetes Care 2021; 46: S19-S40. Current interpretive data was last revised 2022. Calcium 8.2(L) 8.5 - 10.3 mg/dL [facility] ([place]) Bilirubin, total <0.2 0.1 - 1.2 mg/dL [facility] ([place]) Protein, pl 5.7(L) 6.5 - 8.5 g/dL [facility] ([place]) Albumin 3.5 3.5 - 5.0 g/dL [facility] ([place]) Alk phos 56 40 - 130 Units/L [facility] ([place]) ALT 10 7 - 45 Units/L [facility] ([place]) AST 12 10 - 45 Units/L [facility] ([place]) Comment: Hemolysis present. Results may be affected. Slightly Hemolyzed Specimen Blood 01/18/2025 11:4 1 AM CDT 01/18/2025 11:44 AM CDT us Huong BARRAZA LAB BLOOD ORDERABLES Final Resu lt [facility] ([place]) 1 [facility] Department [place] [address] * (ABNORMAL) Urinalysis reflex to microscopic and culture Urine (01/18/2025 10:48 AM CDT) Color, ur Straw Yellow Clarity, ur Turbid(A) Clear [facility] ([place]) Specific gravity, ur 1.008 1.003 - 1.030 [facility] ([place]) pH, urine 7.0 [facility] ([place]) Comment: Interpretive Data U rine pH is affected by diet, medications, systemic acid-base disturbances, and renal tubular function. pH may affect urinary stone formation. For example, urine pH below 6.0 may help reduce the tendency for calcium phosphate stones and pH greater than 6.0 may reduce the tendency for uric acid stone formation. Source: [facility] Current Interpretive Data was last revised on 2017 Protein, ur ql Negative Negative [facility] ([place]) Glucose, ur ql Negative Negative [facility] ([place]) Ketones, ur Negative Negative [facility] ([place]) Bilirubin, ur Negative Negative [facility] ([place]) Blood, ur Negative Negative [facility] ([place]) Urobilinogen, ur <2.0 <2.0 mg/dL [facility] ([place]) Nitrite, ur Negative Negative [facility] ([place]) Leukocyte esterase, ur Negative Negative [facility] ([place]) UA reflex comment Reflex conditions for microscopic UA and culture not met. [facility] ([place]) Urine 01/18/2025 10:4 8 AM CDT 01/18/2025 10:50 AM CDT us Jacqueline Osullivan MD LAB MICROBIOLOGY - GENERA L ORDERABLES Final Result [facility] ([place]) 1 [facility] Department [place] [address] from Last 3 Months Insurance [facility] Advance Directives For more information, please contact: [phone] * Full Code (Latest Code Status on File) Date Activated Date Inactivated Comments 02/28/2025 11:14 AM 02/28/2025 5:19 PM * Full Code Date Activated Date Inactivated Comments 02/28/2025 11:14 AM 02/28/2025 11:14 AM * Full Code Date Activated Date Inactivated Comments 05/26/2018 7:49 PM 05/27/2018 7:18 PM Care Teams Model Maker Plastic Relationship Specialty Start Date End Date Cookie Donovan PA PCP - General 05/23/20 Shine Denson MD 4 [facility] [address] [address] Surgeon General Surgery 09/27/24
--- OUTSIDE RECORDS SUMMARY | 2025-04-02 12:49 | XMS_ITS | Encounter Summary ---
Author Organization [facility] Healthcare Address [address] [place] [address] Care Team Providers Care School Bus Driver Name Role Phone Parent, Cookie Shields CHRISTI Primary Care Provider [phone] Shine Denson MD Unavailable [phone] Encounter Details Date Type Department Care Team (Latest Contact Info) Description 03/13/2025 Results Follow-Up [facility] Medical Group Gastroenterology at [place] 4 [facility] [address] [place] [address] Татьяна Mckeon MD [address] [place] [address] [address] [place] [address] Surgical pathology Social History Tobacco Use Types Packs/Day Years Used Date Smoking Tobacco: Every Day Cigarettes 0.3 13 Smokeless Tobacco: Never Alcohol Use Standard Drinks/Week Comments No 0 [...] on file 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
--- OUTSIDE RECORDS SUMMARY | 2025-04-02 12:49 | XMS_ITS | Referral Summary ---
Author Organization [facility] Address [address] [place] [address] Care Team Providers Care Dice Person Name Role Phone ParentCookieUche BARRAZA Primary Care Provider [phone] Shine Denson MD Unavailable [phone] Encounters Date Type Department Care Team Description 03/13/2025 Results Follow-Up [facility] Medical [facility] Gastroenterology at [address] [place] [address] Татьяна Mckeon MD Surgical pathology 03/02/2025 Telephone [facility] Medical Group Gastroenterology at [address] [place] [address] [place], [place] 03/01/2025 Telephone [facility] Medical [facility] Gastroenterology at [address] [place] [address] [place] ENT Referral 02/28/2025 11:52 AM CDT Anesthesia Event [address] [address] Shine Beckham MD Alexander, Jeffrey Michael, DO 02/28/2025 12:00 PM CDT - 02/28/2025 12:30 PM CDT Surgery [address] [address] Татьяна Mckeon MD COLONOSCOPY 02/28/2025 11:11 AM CDT - 02/28/2025 1:14 PM CDT Hospital Encounter [facility] [address] [place] [address] Татьяна Mckeon MD Blood in stool; Constipation, unspecified constipation type; Esophageal dysphagia Discharge Disposition: Discharge to home or self care 02/24/2025 Telephone [facility] Medical [facility] Gastroenterology at [place] 4 [facility] [address] [place] [phone] Cecile Cardenas 01/18/2025 11:05 AM CDT - 01/18/2025 1:07 PM CDT Emergency [facility] Department [address] [place] [address] Tingling (Primary Dx); Dyspnea, unspecified type Discharge Disposition: Discharge to home or self care from Last 3 Months Allergies Active Allergy Reactions Criticality Noted Date [...] 10/15/2020 Assessment & Plan (10/15/2020 9:57 AM LITIGATION LEGAL SECRETARY): With the worsening symptoms (nausea and fever) [...] contractions 05/26/2018 Overview (05/26/2018): - Presented to [facility] 05[facility]26 with increased contractions - SVE FT/50/-3 (from closed in the office previously) - Started on BMZ, Mg, and Indocin and transferred to [facility] for further care Plan: - Repeat [...] admission - PNL unavailable. Will request from [employer] and further request records from primary OB [...] Date Resolved Date Anal polyp 09/15/2024 10/05/2024 Immunizations Immunization Administration Dates Next Due DTP / HiB 11/04/1995, 5,02/18/1995,12/17 Hep B, Adolescent or Pediatric 5,1994,1994,10/30 Influenza, Quadrivalent, Spl it, Intramuscular 07/30/2019 Influenza, Quadrivalent, Spl it, Preservative Free, Intramuscular 07/03/2020,05/27/2018 Influenza, Trivalent, IM (MDV) 07/06/2014 Influenza, Unspecified 06/06/2021 MMR 05/22/2015,06/05/2014,11/04/1995 OPV 04/22/1995,02/18/1995,1994 Tdap 03/20/2015 Social History Tobacco Use Types Packs/Day Years [...] on file Legal Sex Female 9:55 PM LITIGATION LEGAL SECRETARY Gender Identity Female 10/15/2020 9:15 AM LITIGATION LEGAL SECRETARY Sexual Orientation Not on file Last Filed [...] 02/28/2025 11:22 AM CDT Plan of Treatment Not on file Procedures Procedure Name Priority Date/Time Associated Diagnosis [...] Mckeon MD - 02/28/2025 11:11 AM CDT Digestive [facility] Patient Name: Matthew Masters Procedure Date: 02/28/2025 11:11 AM Date of : 1995 Admit Type: Outpatient Age: 29 Gender: Female Attending MD: Татьяна Mckeon M.D. Room: [facility] ENDOSCOPY ROOM 1 Note Status: Finalized [...] passed under direct vision. The Endoscope [id number]-[id number] was introduced through the mouth, and advanced [...] 11:11 AM Procedure Code(s): --- Professional --- 94779, Esophagogastroduodenoscopy, flexible, transoral; with biopsy, single or multiple Diagnosis Code(s): --- Professional --- K31.89, Other diseases of stomach and duodenum R13.10, Dysphagia, unspecified CPT copyright 2020 [employer] [place] [employer]. All rights reserved. The codes documented in this report are preliminary and upon managed care coordinator reviewmay be revised to meet current compliance requirements. Recognized by the [place] [employer] for promoting quality in endoscopy Татьяна Mckeon MD ENDOSCOPY PROCEDURES Final Result * Colonoscopy (02/28/2025 11:03 AM CDT) Anatomical Region Laterality Modality Other Narrative Procedure Note Татьяна Mckeon MD - 02/28/2025 11:03 AM CDT [facility] Patient Name: Matthew Masters Procedure Date: 02/28/2025 11:03 AM Date of : 1995 Admit Type: Outpatient Age: 29 Gender: Female Attending MD: Татьяна Mckeon M.D. Room: [facility] ENDOSCOPY ROOM 1 Note Status: Finalized [...] at age 44 for screeningpurposes. - Use [id number] fiber supplements oncedaily. - Use the fissure [...] passed under direct vision.The Pediatric Colonoscope [id number] was introduced through the anus and advanced [...] 11:03 AM Procedure Code(s): --- Professional --- 13711, Colonoscopy, flexible; diagnostic, including collection of specimen(s) by brushing or washing, when performed (separateprocedure) Diagnosis Code(s): --- Professional --- K60.2, Anal fissure, unspecified K64.8, Other hemorrhoids K62.5, Hemorrhage of anus and rectum CPT copyright 2020 [place]. All rights reserved. The codes documented in this report are preliminary and upon managed care coordinator reviewmay be revised to meet current compliance requirements. Recognized by the [place] [employer] for promoting quality in endoscopy Татьяна Mckeon MD ENDOSCOPY PROCEDURES Final Result * Surgical pathology (02/28/2025 9:17 AM CDT) Tissue (Gastric/Stomach biopsy) 02/28/2025 11:58 AM CDT Tissue specimen (specimen) (Small bowel, biopsy) 02/28/2025 12:00 PM CDT Tissue specimen (specimen) (Esophageal biopsy) 02/28/2025 12:01 PM CDT Narrative PATHOLOGY [facility] ([place]) - 03/02/2025 2:13 PM CDT EPIC results best viewed via link to PDF [facility] Department of Pathology [address] [place] [address] Note to Patients: This report may contain [...] the details. Final Report Patient Name: MATTHEW MASTERS Address: [address] [place] [address] [place] [address] Gender: F : 1995 (Age: 29) Service: Gastro Location: [facility] Hospital #: [id number] Patient Type: [facility] SDS Taken: 02/28/2025 Received: 03/01/2025 Accessioned: 03/01/2025 Reported: [...] determined by the Surgical Pathology Department at [facility] as part of an ongoing quality assurance intern program and in compliance with federally mandated [...] characteristics determined by the Surgical Pathology Department [facility]. It has not been cleared or approved by the U. S. Food and Drug Administration. Note for decalcified specimens: This assay has not been validated on decalcified tissues. Results should be interpreted with caution given the possibility of false negativity on decalcified specimens us Татьяна Mckeon MD LAB PATHOLOGY ORDERABLES F inal Result PATHOLOGY [facility] ([place] [id number] * XR Chest 1 Vw Portable (01/18/2025 [...] Lizeth Cordero D.O. PS: PS Report ID: [id number] Reading Location: [place] [address] Procedure Note Lizeth Cordero, DO - 01/18/2025 EXAM DESCRIPTION: XR CHEST [...] Lizeth Cordero D.O. PS: PS Report ID: [id number] Reading Location: [place] [address] Huong BARRAZA IM XR PROCEDURES Final Result * eGFR (01/18/2025 [...] LAB BLOOD ORDERABLES Final Resu lt [facility] ([place]) 1 [facility] Department [place] [address] * Differential, auto (01/18/2025 11:41 AM CDT) [...] LAB BLOOD ORDERABLES Final Resu lt [facility] ([place]) 1 [facility] Department [place] [address] * (ABNORMAL) CBC with auto differential (01/18/2025 [...] ([place]) MCHC 33.9 32.3 - 35.7 g/dL [facility] ([place]) RDW CV 11.9 11.1 - 14.9 % [facility] ([place]) RDW SD 41.3 35.7 - 48.1 fL [facility] ([place]) NRBC abs 0.00 0.00 - 0.01 K/cumm [facility] ([place]) Blood 01/18/2025 11:4 1 AM CDT 01/18/2025 11:44 AM CDT Huong BARRAZA LAB BLOOD ORDERABLES Final Resu lt [facility] ([place]) 1 [facility] [place] [address] * Magnesium (01/18/2025 11:41 AM CDT) Pathologist [facility] Magnesium 2.1 1.4 - 2.5 mg/dL Blood 01/18/2025 11:4 1 AM CDT 01/18/2025 11:44 AM CDT Huong BARRAZA LAB BLOOD ORDERABLES Final Resu lt [facility] ([place]) [address] [facility] [place] [address] * (ABNORMAL) Comprehensive metabolic panel (01/18/2025 11:41 AM CDT) Sodium 136 135 - 145 mmol/L Potassium, pl 4.2 3.3 - 4.9 mmol/L [facility] ([place]) Chloride 103 97 - 110 mmol/L [facility] ([place]) CO2 23 22 - 32 mmol/L [facility] ([place]) Anion gap 10 2 - 15 mmol/L [facility] ([place]) BUN 7 6 - 25 mg/dL [facility] ([place]) Creatinine 0.70 0.60 - 1.10 mg/dL [facility] ([place]) Glucose 100 70 - 199 mg/dL [facility] ([place]) Comment: Interpretive Data Fasting [...] LAB BLOOD ORDERABLES Final Resu lt [facility] ([place]) 1 [facility] Department [place] [address] * (ABNORMAL) Urinalysis reflex to microscopic and culture Urine (01/18/2025 10:48 AM CDT) Color, ur Straw Yellow Clarity, ur Turbid(A) Clear [facility] ([place]) Specific gravity, ur 1.008 1.003 - 1.030 [facility] ([place]) pH, urine 7.0 [facility] ([place]) Comment: Interpretive Data U rine pH is affected by diet, medications, systemic acid-base disturbances, and renal tubular function. pH may affect urinary stone formation. For example, urine pH below 6.0 may help reduce the tendency for calcium phosphate stones and pH greater than 6.0 may reduce the tendency for uric acid stone formation. Source: [facility] Current Interpretive Data was last revised [...] 8 AM CDT 01/18/2025 10:50 AM CDT Jacqueline Osullivan MD LAB MICROBIOLOGY - GENERA L ORDERABLES Final Result [facility] ([place]) 1 [facility] Department [place] [address] from Last 3 Months Insurance [facility] Advance Directives For more information, please contact: [phone] * Full Code (Latest Code Status on File) Date Activated Date Inactivated Comments 02/28/2025 11:14 AM 02/28/2025 5:19 PM * Full Code Date Activated Date Inactivated Comments 02/28/2025 11:14 AM 02/28/2025 11:14 AM * Full Code Date Activated Date Inactivated Comments 05/26/2018 7:49 PM 05/27/2018 7:18 PM Care Teams Dice Person Relationship Specialty Start Date End Date Cookie Donovan PA PCP - General 05/23/20 Shine Denson MD [address] [place] [address] DR NYE [address] [place] [address] Surgeon General Surgery 09/27/24
[2025-04-02 12:50] VITALS: BP 127/68; PULSE 79; RESP 16; TEMP 36.8; O2SAT 100
--- NOTE | 2025-04-02 13:00 | ED_ITS ---
HPI - URI/Sore Throat General Chief Complaint: Upper Respiratory Infection Stated Complaint: throat patient presents to [facility] with complaints significant sore throat, left ear pain, fever, headache that began yesterday. Patient reports using ibuprofen at home with some relief of fever. Patient reports long history of strep and left with this feels like to her. Denies dizziness, cough, shortness of breath, difficulty swallowing, drainage from ears. Related Data Home Medications ?Medication ?Instructions ?Recorded ?Confirmed ?Last Taken ?Type clonazepam 1 mg tablet 1 mg PO BID 09/09/23 02/19/24 02/10/24 21:00 History 1 mg bupropion HCl 150 mg 24 hr tablet, mg PO 04/02/25 Unknown History extended release lurasidone 60 mg tablet mg 04/02/25 Unknown History pantoprazole 40 mg tablet,delayed mg PO 04/02/25 Unknown History release Allergies Allergy/AdvReac Type Severity Reaction Status Date / Time shellfish derived Allergy Unknown Anaphylactic Verified 04/02/25 12:59 Shock Review of Systems Constitutional: Constitutional: Reports as per HPI, Denies chills, Reports fatigue, Reports fever(s) and Denies weakness Eyes: Eyes: Reports no additional eye complaints ENT: Reports as per HPI, Reports nasal congestion and Reports sore throat Comments: left ear pain Cardiovascular: Cardiovascular: Reports no additional cardiovascular complaints Respiratory: Respiratory: Reports as per HPI, Denies chest congestion, Denies cough, Denies dyspnea and Denies wheezing Gastrointestinal: Gastrointestinal: Reports as per HPI, Denies diarrhea, Denies nausea and Denies vomiting Genitourinary: Genitourinary: Reports no additional female genitourinary complaints Musculoskeletal: Musculoskeletal: Reports no additional musculoskeletal complaints Integumentary/Breasts: Skin/Breast: Reports as per HPI and Denies rash Neurologic: Reports as per HPI, Reports headache(s) and Denies weakness Psychiatric: Psychiatric: Reports no additional psychiatric complaints Endocrine: Endocrine: Reports no additional endocrine complaints Hematologic/Lymphatic: Hematologic/Lymphatic: Reports no additional hematologic/lymphatic complaints Allergic/Immunologic: Allergic/Immunologic: Reports no additional allergic/immunologic complaints [facility] Past Medical History Medical History Anxiety Asthma Bipolar disorder delivery delivered Conversion disorder Endometriosis GERD (gastroesophageal reflux disease) Hx of migraines IBS (irritable bowel syndrome) MRSA (methicillin resistant staph aureus) culture positive Post traumatic stress disorder (PTSD) Surgical History Surgical History H/O section X3 History of hysterectomy Family History Family History Father Alive and well Mother Alive and well Social History Social History Smoking packs per day: 0.5 Smoking cigarettes per day: 10.0 Years smoked: 4 Smoking pack-years: 2.00 Smoking status: Current every day smoker Tobacco type: cigarettes Second hand tobacco smoke exposure: No Alcohol intake: current Drinks per week: 3 Substance use: current Substance use type: marijuana Do You Feel Safe in your Home?: Yes Lack of Transportation: No Lack of Food: Sometimes True Current Housing: I Have Housing Concerned About Future Housing: YES Difficulty Paying Gas/Electric Bills: YES Difficulty Paying for Meds: YES Currently Unemployed: No Education: High School Diploma/GED Difficulty w/ Childcare or Family Care: No Living arrangements: with family Occupation/Education: occupation Gender identity (if verbalized by the patient): Female Sexual Orientation (if Verbalized by the Patient): Straight or Heterosexual Spiritual care concerns: No Exam Const: General: no acute distress and ill appearing Nutritional Appearance: well nourished Orientation/consciousness: patient oriented x3 Limitations: no limitations HENMT: Head: normal to inspection Ears: external ears normal and TM's normal bilaterally Face/Nose/Sinus: Normal external nose present and Normal nares present Face and sinus: normal facial exam and sinuses nontender Mo uth: Yes Normal oral and palatal mucosa present Teeth and gingiva: dentition normal Throat: posterior oropharynx abnormal Other: Significant erythema with edema and exudate noted. Neck: Neck: lymphadenopathy ( Bilateral anterior cervical) Resp: Effort & Inspection: normal respiratory effort Auscultation: clear to auscultation bilaterally Cardio: Rate: regular rate Rhythm: regular rhythm Skin: General skin exam: normal color Rashes: no rashes Wounds: no wounds Neuro: General: patient oriented x3 Speech: normal speech Gait exam (Neuro): Normal gait present Psych: Mental Status: mental status grossly normal Affect: normal affect Attitude: cooperative Course Course Level of Care: Express Care Visit MDM - URI/Sore Throat MDM Narrative Medical decision making narrative: strep negative center criteria 12/10. Will treat Discharge instructions reviewed with patient, as well as provided in writing per nursing staff. The instructions also include specific and strict return/GO TO THE ER as well as f/u information. All questions have been answered, and the patient deny any further questions with discharge and discharge plan. Differential Diagnosis Differential diagnosis: Likely upper respiratory infection, croup, otitis media, influenza and pharyngitis Medical Records Attestation: I reviewed the patient's medical records. Lab Data Attestation: I reviewed the patient's lab results. Discharge Plan Discharge Clinical Impression: Acute infective tonsillitis Patient Disposition: Home Condition: Stable Instructions: Antibiotic Form, Strep Throat (ED) Additional Instructions: After 24 hours on antibiotics throw tooth brush away and start using a new one. Do not share drinks. Take Motrin alternating with Tylenol for pain and fever alternating every 4 hours. Increase fluids, avoid caffeine. Follow up with Primary provider if not getting better this week Patient Language: Puerto Rican Prescriptions: New amoxicillin 875 mg tablet 875 mg PO Q12H Qty: 20 0RF No Action clonazepam 1 mg tablet 1 mg PO BID pantoprazole 40 mg tablet,delayed release (DR/EC) PO bupropion HCl 150 mg tablet extended release 24 hr PO lurasidone 60 mg tablet Follow-up/Referrals: Parent,CHRISTI Hong [Primary Care Provider] - Time of Disposition: 13:11
[2025-04-02 13:14] LABS: EDSTREPNEGPOS1 Negative (Negative)
== END 2025-04-02 13:15 | disposition home or self-care (01) ==
PROVIDERS: Emergency Provider Nurse Practitioner Family; PCP Physician Assistant
DX: J03.90 Acute tonsillitis, unspecified (principal); F17.210 Nicotine dependence, cigarettes, uncomplicated; F12.90 Cannabis use, unspecified, uncomplicated; J45.909 Unspecified asthma, uncomplicated; N80.9 Endometriosis, unspecified; K21.9 Gastro-esophageal reflux disease without esophagitis; F41.9 Anxiety disorder, unspecified; F31.9 Bipolar disorder, unspecified; Z86.16 Personal history of COVID-19
CPT/HCPCS: 87880; 99213; G0463

== ENCOUNTER 2025-05-29 19:19 | Emergency (ER) | payer OTHER, SELFPAY ==
[2025-05-29 19:22] VITALS: BP 124/83; PULSE 84; RESP 16; TEMP 36.9; O2SAT 100
--- OUTSIDE RECORDS SUMMARY | 2025-05-29 19:22 | XMS_ITS | Clinical Summary ---
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 Will request from [facility] and further request records from primary OB [...] Encounters Date Type Department Care Team Description 04/04/2025 3:56 PM CDT - 04/04/2025 7:32 PM CDT Emergency [facility] Emergency Department [address] [place] [address] Discharge Disposition: Left without being seen 04/03/2025 4:53 PM CDT - 04/03/2025 4:54 PM CDT Emergency [facility] Emergency Department [address] [place] [address] Tonsillitis (Primary Dx) Discharge Disposition: Discharge to home or self care 03/13/2025 Results Follow-Up [facility] Gastroenterology at [address] [place] [phone] Татьяна Mckeon MD Surgical pathology 03/02/[address] [facility] Gastroenterology at [address] [address] [facility] [place] 03/01/[address] [facility] Gastroenterology at [address], [place] [address] [place] ENT Referral 02/28/2025 12:00 PM CDT - 02/28/2025 12:30 PM CDT Surgery [address] [address] Татьяна Mckeon MD COLONOSCOPY 02/28/2025 11:52 AM CDT Anesthesia Event [address] [address] Shine Beckham MD Alexander, Jeffrey Michael, DO 02/28/2025 11:11 AM CDT - 02/28/2025 1:14 PM CDT Hospital Encounter [facility] [address] [place] [address] Татьяна Mckeon MD Blood in stool; Constipation, [...] Delayed emergence from general anesthesia Bipolar disorder Anxiety PONV (postoperative nausea and vomiting) Fissure, [...] making you feel afraid or unsafe? 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 Sexual Orientation Not on file Obstetrics History [...] Sign Reading Time Taken Comments Blood Pressure 133/87 04/04/2025 3:59 PM CDT Pulse 118 04/04/2025 3:59 PM CDT Temperature 37 C (98.6 F) 04/04/2025 3:58 PM CDT Respiratory Rate 13 04/04/2025 3:59 PM CDT Oxygen Saturation 100% 04/04/2025 3:59 PM CDT Inhaled Oxygen Concentration - - Weight 68 kg (150 lb) 04/04/2025 3:59 PM CDT Height 162.6 cm (5' 4) 04/03/2025 3:03 PM CDT Body Mass Index 25.75 04/03/2025 3:03 PM CDT Plan of Treatment Health Maintenance Due Date Last Done Comments Depression Screening 1995 Hepatitis C Screening 1995 Regular Well Visit/Exam 18-64 2012 Pneumococcal vaccine <65 (1 of 2 - PCV) 2013 Varicella Vaccines (1 of 2 - 13+ 2-dose series) 06/19/2015 HPV Vaccines (1 - 3-dose SCD M series) 2021 DTaP/Tdap/Td Vaccine (6 - Td or Tdap) 03/20/2025 03/20/2015, 11/04/1995, 04/22/1995, Additional history exists Influenza Vaccine (#1) 2025 , 07/03/2020, 07/30/2019, Additional history exists Hepatitis B Screening Completed 04/22/1995 , 1995, 1995, Additional history exists Procedures Procedure Name Priority Date/Time Associated Diagnosis Comments STREPTOCOCCUS GROUP A PCR STAT 2024 3:07 PM CDT ESOPHAGOGASTRODUODENOSCOPY BIOPSY 02/28/2025 11:45 AM CDT Blood in stool Constipation, unspecified constipation type Esophageal dysphagia COLONOSCOPY 02/28/2025 11:45 AM CDT Blood in stool Constipation, unspecified constipation type Esophageal dysphagia EGD 02/28/2025 11:11 AM CDT COLONOSCOPY 02/28/2025 11:03 AM CDT SURGICAL PATHOLOGY STAT 02/28/2025 9:17 AM CDT Blood in stool Constipation, unspecified constipation type Esophageal dysphagia from Last 3 Months Results * Streptococcus Group A PCR Throat (04/03/2025 3:07 PM CDT) Strep A DNA Not Detected Not Detected Comment: This test is performed using the Seeqpod Xpert Group A Streptococcal Assay. This is a qualitative, real-time PCR assay that detects Group A Strep using throat specimens from patients suspected of having streptococcal pharyngitis. This assay does not detect other beta-hemolytic streptococci including Group C or Group G. Group C and G have been associated with pharyngitis and, occasionally, acute nephritis but do not cause rheumatic fever. If suspected, order Throat Culture, Routine. This assay has been cleared by the US Food and Drug Administration, and its performance characteristics have been verified by the performing laboratory. Throat 04/03/2025 3:07 PM CDT 04/03/2025 3:09 PM CDT Shelley Nichole MD LAB MICROBIOLOGY - GENERAL ORDERABLES Final Result [facility] Department of Laboratories [place], [place] [id number] * EGD (02/28/2025 11:11 AM CDT) Anatomical Region Laterality Modality Other Narrative Procedure Note Татьяна Mckeon MD - 02/28/2025 11:11 AM CDT [facility] Patient Name: Matthew Masters Procedure Date: 02/28/2025 11:11 AM Date of : 1995 Admit Type: Outpatient Age: 29 Gender: Female Attending MD: Татьяна Mckeon M.D. Room: [facility] ENDOSCOPY ROOM 1 Note Status: Finalized Patient [...] passed under direct vision. The Endoscope [id number] was introduced through the mouth, and advanced [...] 11:11 AM Procedure Code(s): --- Professional --- 23499, Esophagogastroduodenoscopy, flexible, transoral; with biopsy, single or multiple Diagnosis Code(s): --- Professional --- K31.89, Other diseases of stomach and duodenum R13.10, Dysphagia, unspecified CPT copyright 2020 [employer]. All rights reserved. The codes documented in this report are preliminary and upon pulley maintainer reviewmay be revised to meet current compliance requirements. Recognized by the [employer] for promoting quality in endoscopy Татьяна Mckeon MD ENDOSCOPY PROCEDURES Final Result * Colonoscopy (02/28/2025 11:03 AM CDT) Anatomical Region Laterality Modality Other Narrative Procedure Note Татьяна Mckeon MD - 02/28/2025 11:03 AM CDT [facility] Patient Name: Matthew Masters Procedure Date: 02/28/2025 11:03 AM Date of : 1995 Admit Type: Outpatient Age: 29 Gender: Female Attending MD: Татьяна Mckeon M.D. Room: [facility] ENDOSCOPY ROOM 1 Note Status: Finalized Patient [...] at age 44 for screeningpurposes. - Use xmlr-vul-ohvkych fiber supplements oncedaily. - Use the fissure [...] passed under direct vision.The Pediatric Colonoscope [id number] was introduced through the anus and advanced [...] 11:03 AM Procedure Code(s): --- Professional --- 49223, Colonoscopy, flexible; diagnostic, including collection of specimen(s) by brushing or washing, when performed (separateprocedure) Diagnosis Code(s): --- Professional --- K60.2, Anal fissure, unspecified K64.8, Other hemorrhoids K62.5, Hemorrhage of anus and rectum CPT copyright 2020 [employer]. All rights reserved. The codes documented in this report are preliminary and upon pulley maintainer reviewmay be revised to meet current compliance requirements. Recognized by the [employer] for promoting quality in endoscopy Татьяна Mckeon MD ENDOSCOPY PROCEDURES Final Result * Surgical pathology (02/28/2025 9:17 AM CDT) Tissue (Gastric/Stomach biopsy) 02/28/2025 11:58 AM CDT Tissue specimen (specimen) (Small bowel, biopsy) 02/28/2025 12:00 PM CDT Tissue specimen (specimen) (Esophageal biopsy) 02/28/2025 12:01 PM CDT Narrative PATHOLOGY [facility] - 03/02/2025 2:13 PM CDT EPIC results best viewed via link to PDF [facility] Department of Pathology [address] [place] [id number] Note to Patients: This report may contain [...] Final Report Patient Name: MATTHEW MASTERS Address: [facility] [place] [address] Gender: F : 1995 (Age: 29) Service: Gastro Location: [facility] Hospital #: [id number] Patient Type: [facility] Taken: 02/28/2025 Received: 03/01/2025 Accessioned: 03/01/2025 [...] submitted in three formalin containers labeled MATTHEW MASTERS. Azam. The first container is labeled gastric biopsies. [...] mm. All in C. T.A. Ilan Huntley., P.Azam./Saman Saxena M.D. REPORT IMAGES AND SCANNED DOCUMENTS, IF INCLUDED, ONLY VIEWABLE IN PDF VERSION OF REPORT The performance characteristics of some immunohistochemical stains, fluorescence in-situ hybridization tests and immunophenotyping by flow cytometry cited in this report (if any) were determined by the Surgical Pathology Department at [facility] as part of an ongoing water quality manager program and in compliance with federally [...] characteristics determined by the Surgical Pathology Department [facility]. It has not been cleared or approved by the U. S. Food and Drug Administration. Note for decalcified specimens: This assay has not been validated on decalcified tissues. Results should be interpreted with caution given the possibility of false negativity on decalcified specimens us Татьяна Mckeon MD LAB PATHOLOGY ORDERABLES F inal Result PATHOLOGY [facility]) [address] [place] [address] from Last 3 Months Insurance [facility] [place] [address] [facility] Advance Directives For more information, please contact: [phone] * Full Code (Latest Code Status on File) Date Activated Date Inactivated Comments 02/28/2025 11:14 AM 02/28/2025 5:19 PM * Full Code Date Activated Date Inactivated Comments 02/28/2025 11:14 AM 02/28/2025 11:14 AM * Full Code Date Activated Date Inactivated Comments 05/26/2018 7:49 PM 05/27/2018 7:18 PM Care Teams Blunger Loader Relationship Specialty Start Date End Date Cookie Donovan PA PCP - General 05/23/20 Shine Denson MD [address] [place] [address] DR NYE [address] [place] [id number] Surgeon General Surgery 09/27/24
--- OUTSIDE RECORDS SUMMARY | 2025-05-29 19:22 | XMS_ITS | Clinical Summary ---
Author Organization [facility] Address [address] [facility] [place] [address] Phone Care Team Providers Care Cello Teacher Name Role Phone ParentCookie JULIO Primary Care Provider [phone] Allergies No known active allergies Medications ondansetron [...] Comments Blood Pressure 130/88 10/26/2023 4:00 PM MANAGER [place] Pulse 111 10/26/2023 4:00 PM MANAGER [place] Temperature 36.6 C (97.8 F) 10/26/2023 1:12 PM MANAGER [place] Respiratory Rate 17 10/26/2023 4:00 PM MANAGER [place] Oxygen Saturation 100% 10/26/2023 4:00 PM MANAGER [place] Inhaled Oxygen Concentration - - Weight 77.1 kg (170 lb) 10/26/2023 1:12 PM MANAGER [place] Height 162.6 cm (5' 4) 10/26/2023 1:12 PM MANAGER [place] Body Mass Index 29.18 10/26/2023 1:12 PM MANAGER [place] Plan of Treatment Health Maintenance Due Date Last Done Comments Hepatitis C Virus (HCV) Screening 1995 Human Papillomavirus (HPV) Immunization (1 - 3-dose SCDM series) 2021 Influenza Immunization (#1) 05/09/202505/10, 07/03/2020, 07/30/2019, Additional history exists SARS-COV-2 Immunization ( season) 2025 03/12/2021, 02/18/2021 Respiratory Syncytial Virus (RSV) Immunization (Adult) (1 [...] patient's age to complete this topic Insurance * Guarantor: Bertha Leon Account Type Relation to Patient Date of Phone Billing Address Personal/Family Self 1995 [id number] [place] [address] MEDICAID [employer] Care Teams Cello Teacher Relationship Specialty Start Date End Date Cookie Donovan PAC [address] [address] PCP - General Physician Power Plant Operations Manager 11/21/22
--- NOTE | 2025-05-29 19:42 | ED_ITS ---
HPI - General Adult General Chief complaint: [employer] Stated complaint: yeast infection Source: patient Mode of arrival: ambulatory Limitations: no limitations History of Present Illness HPI narrative: Patient presents for evaluation of thick white clumpy vaginal discharge with associated itching for the last 2 days. She has a history of vaginal candidiasis and this is similar. She denies any urinary symptoms or vaginal bleeding. History of hysterectomy. She is simply requesting a prescription for fluconazole. Related Data Home Medications ?Medication ?Instructions ?Recorded ?Confirmed ?Last Taken ?Type clonazepam 1 mg tablet 1 mg PO BID 09/09/23 4 02/10/24 21:00 History 1 mg bupropion HCl 150 mg 24 hr tablet, mg PO 04/02/25 Unk nown History extended release pantoprazole 40 mg tablet,delayed mg PO 04/02/25 Unkn own History release bupropion HCl 300 mg 24 hr tablet, mg PO 05/29/25 Unk nown History extended release naltrexone 50 mg tablet mg 05/29/25 Unknown History prazosin 1 mg capsule mg 05/29/25 Unknown History quetiapine 100 mg tablet mg 05/29/25 Unknown History valacyclovir 1 gram tablet mg 05/29/25 Unknown Histor y Allergies Allergy/AdvReac Type Severity Reaction Status Date / Time shellfish derived Allergy Unknown Anaphylactic Verified 05/29/25 19:24 Shock Review of Systems Review of Systems: CONSTITUTIONAL: Denies fever, chills, or sweats. EYES: Denies visual changes, redness, or discharge. ENT: Denies rhinorrhea, congestion, sore throat, or otalgia. CARDIOVASCULAR: Denies chest pain, palpitations, or edema. RESPIRATORY: Denies cough or dyspnea. GASTROINTESTINAL: Denies abdominal pain, nausea, vomiting, or diarrhea. GENITOURINARY:Reports thick white clumpy vaginal discharge that is pruritic SKIN: Denies rash or itching. MUSCULOSKELETAL: Denies back pain, joint pain, or myalgia. NEUROLOGIC: Denies headache, numbness, dizziness, or weakness. PSYCHIATRIC: Denies anxiety or depression. [facility] Past Medical History Medical History GERD (gastroesophageal reflux disease) IBS (irritable bowel syndrome) Conversion disorder Endometriosis Asthma Anxiety Bipolar disorder Post traumatic stress disorder (PTSD) Hx of migraines MRSA (methicillin resistant staph aureus) culture positive delivery delivered Surgical History Surgical History History of hysterectomy H/O section X3 Family History Family History Father Alive and well Mother Alive and well Social History Social History Smoking packs per day: 0.5 Smoking cigarettes per day: 10.0 Years smoked: 4 Smoking pack-years: 2.00 Smoking status: Current every day smoker Tobacco type: cigarettes Second hand tobacco smoke exposure: No Alcohol intake: current Drinks per week: 3 Substance use: current Substance use type: marijuana Do You Feel Safe in your Home?: Yes Lack of Transportation: No Lack of Food: Sometimes True Current Housing: I Have Housing Concerned About Future Housing: YES Difficulty Paying Gas/Electric Bills: YES Difficulty Paying for Meds: YES Currently Unemployed: No Education: High School Diploma/GED Difficulty w/ Childcare or Family Care: No Living arrangements: with family Occupation/Education: occupation Gender identity (if verbalized by the patient): Female Sexual Orientation (if Verbalized by the Patient): Straight or Heterosexual Spiritual care concerns: No Exam Narrative: GENERAL: Well-appearing, well-nourished, and in no acute distress. HEAD: Normocephalic, atraumatic. EYES: PERRLA and EOMI. ENT: Nares clear, no rhinorrhea or epistaxis. Mucous membranes moist. Oropharynx without tonsillar hypertrophy exudate or other lesions. Bilateral TMs pearly denise nonbulging NECK: Supple. No adenopathy or masses. No carotid bruits or JVD CHEST: Clear to auscultation. No respiratory distress. No wheezes rales or rhonchi HEART: Regular rate and rhythm. No murmur heard. Normal peripheral pulses. ABDOMEN: Soft, nontender, nondistended, normal active bowel sounds. EXTREMITIES: Normal range of motion. No edema. SKIN: Warm, dry, no rash. NEURO: No focal deficits. Alert and oriented x3. PSYCH: Normal mood and affect. Course Course Emergency Course: This is a 29-year-old female who presented for evaluation of vaginal candidiasis. Will discharge with fluconazole. She has no other symptoms. Follow-up primary care provider. Go to the ER for worsening symptoms. Patient in agreement with plan of care. Level of Care: Express Care Visit Vital Signs Vital signs: Vital Signs Temperature 36.9 C 05/29/25 19:22 Pulse Rate 84 05/29/25 19:22 Respiratory Rate 16 05/29/25 19:22 Blood Pressure 124/83 05/29/25 19:22 Pulse Oximetry 100 05/29/25 19:22 Oxygen Delivery Room Air 05/29/25 19:22 Temperature 36.9 C 05/29/25 19:22 Pulse Rate 84 05/29/25 19:22 Respiratory Rate 16 05/29/25 19:22 Blood Pressure 124/83 05/29/25 19:22 Pulse Oximetry 100 05/29/25 19:22 Oxygen Delivery Room Air 05/29/25 19:22 Medical Decision Making Vital Signs Vital Signs: Vital Signs Temperature 36.9 C 05/29/25 19:22 Pulse Rate 84 05/29/25 19:22 Respiratory Rate 16 05/29/25 19:22 Blood Pressure 124/83 05/29/25 19:22 Pulse Oximetry 100 05/29/25 19:22 Oxygen Delivery Room Air 05/29/25 19:22 Temperature 36.9 C 05/29/25 19:22 Pulse Rate 84 05/29/25 19:22 Respiratory Rate 16 05/29/25 19:22 Blood Pressure 124/83 05/29/25 19:22 Pulse Oximetry 100 05/29/25 19:22 Oxygen Delivery Room Air 05/29/25 19:22 Discharge Plan Discharge Clinical Impression: Candidiasis of vagina Patient Disposition: Home Condition: Stable Instructions: Antibiotic Form, Yeast Infection (ED) Patient Language: Welsh Prescriptions: New fluconazole 150 mg tablet 150 mg PO DAILY Qty: 2 1RF No Action clonazepam 1 mg tablet 1 mg PO BID valacyclovir 1 gram tablet prazosin 1 mg capsule naltrexone 50 mg tablet quetiapine 100 mg tablet bupropion HCl 300 mg tablet extended release 24 hr PO pantoprazole 40 mg tablet,delayed release (DR/EC) PO bupropion HCl 150 mg tablet extended release 24 hr PO Follow-up/Referrals: Parent,CHRISTI Hong [Primary Care Provider, Unknown] Time of Disposition: 19:30
== END 2025-05-29 19:33 | disposition home or self-care (01) ==
PROVIDERS: Emergency Provider Nurse Practitioner; PCP Physician Assistant
DX: B37.31 Acute candidiasis of vulva and vagina (principal); F17.210 Nicotine dependence, cigarettes, uncomplicated; F12.90 Cannabis use, unspecified, uncomplicated; K21.9 Gastro-esophageal reflux disease without esophagitis; N80.9 Endometriosis, unspecified; J45.909 Unspecified asthma, uncomplicated; F41.9 Anxiety disorder, unspecified; F31.9 Bipolar disorder, unspecified
CPT/HCPCS: 99213; G0463